=== PATIENT | female | born 1975 | race African-American/Black ===

== ENCOUNTER → 2016-12-10 | Emergency (ER) | payer OTHER ==
[2016-12-11 00:03] VITALS: BP 164/80; PULSE 72; TEMP 98.6; BMI 31.4
--- NOTE | 2016-12-11 01:24 | PDOC ---
History of Present Illness - General History Source: Patient Exam Limitations: No Limitations - History of Present Illness Initial Comments: 12/11/16 01:49 The patient is a 41-year-old female, with no significant past medical history, who presents to the ED with rectal bleeding that began this morning. The patient states that she had a bowel movement this morning and noted blood and clots in the toilet bowl. She experienced two more episodes of bleeding throughout the day. Pt denies that she is constipated and states that she goes to the bathroom normally. The patient denies having any other symptoms at this time. <Yola Ruelas - Last Filed: 12/11/16 01:49> <Carmina Fernández - Last Filed: 12/11/16 05:50> - General Chief Complaint: Rectal Bleed Stated Complaint: RECTAL BLEEDING Time Seen by Provider: 12/11/16 00:08 Past History <Yola Ruelas - Last Filed: 12/11/16 01:49> - Past Medical History Suicide Attempt (Hx): No - Surgical History Abdominal Surgery: Yes (HERNIA) - Reproductive History (#): 6 Para: 5 - Psycho/Social/Smoking Cessation Hx Suicidal Ideation: No Smoking Status: No Smoking History: Never smoked Have you smoked in the past 12 months: No Number of Cigarettes Smoked Daily: 0 Information on smoking cessation initiated: No Hx Alcohol Use: No Drug/Substance Use Hx: No Hx Substance Use Treatment: No <Carmina Fernández - Last Filed: 12/11/16 05:50> - Past Medical History Allergies/Adverse Reactions: Allergies Allergy/AdvReac Type Severity Reaction Status Date / Time No Known Allergies Allergy Verified 12/11/16 00:01 Home Medications: Ambulatory Orders Pnv95/Ferrous Fumarate/FA [ Tablet] 1 each PO DAILY 04/08/13 Review of Systems - Review of Systems Able to Perform ROS?: Yes Comments:: 12/11/16 01:50 CONSTITUTIONAL: Absent: fever, no chills, no fatigue EYES: Absent: visual changes ENT: Absent: ear pain, no sore throat CARDIOVASCULAR: Absent: chest pain, no palpitations RESPIRATORY: Absent: cough, no SOB GI: Absent: abdominal pain, no nausea, no vomiting, no constipation, no diarrhea GENITOURINARY: Present: rectal bleeding Absent: dysuria, no frequency, no hematuria MUSKULOSKELETAL: Absent: back pain, no arthralgia, no myalgia SKIN: Absent: rash NEURO: Absent: headache <Roxi Ruelasie - Last Filed: 12/11/16 01:49> *Physical Exam - Vital Signs Last Vital Signs Temp Pulse Resp BP Pulse Ox 98.6 F 72 20 164/80 97 12/11/16 00:01 12/11/16 00:01 12/11/16 00:01 12/11/16 00:01 12/11/16 00:01 - Physical Exam Comments: 12/11/16 01:51 GENERAL: Well-appearing, well-nourished. No apparent distress. HEENT: Normocephalic, atraumatic. PERRL, EOM intact. CARDIOVASCULAR: Normal S1, S2. Regular rate and rhythm. PULMONARY: Clear to auscultation bilaterally. ABDOMEN: Soft, non-distended, non-tender. EXTREMITIES: Normal ROM in all four extremities. No gross deformities. SKIN: Warm, dry. No rash NEUROLOGICAL: No focal neurological deficits. Rectal Exam: Large hemorrhoid noted at 6'oclock. <Yola Ruelas - Last Filed: 12/11/16 01:49> - Vital Signs Last Vital Signs Temp Pulse Resp BP Pulse Ox 98.6 F 72 20 164/80 97 12/11/16 00:01 12/11/16 00:01 12/11/16 00:01 12/11/16 00:01 12/11/16 00:01 <Carmina Fernández - Last Filed: 12/11/16 05:50> ED Treatment Course - ADDITIONAL ORDERS Additional order review: Laboratory Results 12/11/16 01:40 Stool Occult Blood Negative <Yola Ruelas - Last Filed: 12/11/16 01:49> - LABORATORY CBC & Chemistry Diagram: 12/11/16 01:46 12/11/16 01:46 <Carmina Fernández - Last Filed: 12/11/16 05:50> Medical Decision Making - Medical Decision Making 12/11/16 05:49 Pt comes with rectal bleed x 3 today. Here agatha guaiac is normal. Labs normal. Exam normal. No active bleeding. SHe has only a large hemorrhoid at 6 o' clock. SHe will be sent home with GI followup. <Carmina Fernández - Last Filed: 12/11/16 05:50> *DC/Admit/Observation/Transfer - Attestations Scribe Attestion: 12/11/16 01:52 Documentation prepared by Yola Ruelas, acting as medical dosimetrist for Carmina Fernández MD. <Yola Ruelas - Last Filed: 12/11/16 01:49> - Discharge Dispostion Admit: No <Carmina Fernández - Last Filed: 12/11/16 05:50> Diagnosis at time of Disposition: Rectal bleed, Hemorrhoid - Discharge Dispostion Disposition: HOME Condition at time of disposition: Stable - Referrals Referrals: Jaret Zamarripa MD [Staff Physician] - - Patient Instructions Printed Discharge Instructions: DI for Hemorrhoids, DI for Rectal Bleeding
[2016-12-11 01:55] LABS: BASOPHIL 0.5 % (0-2.0); EOSINOPHIL 1.8 % (0-4.5); MCH 28.5 pg (25.7-33.7); MEAN CELL VOLUME 86.5 fl (80-96); MEAN PLT VOLUME 9.1 fl (7.5-11.1); NEUTROPHILS 52.6 % (42.8-82.8); PLATELET COUNT 216 K/MM3 (134-434); RDW 13.9 % (11.6-15.6); WHITE BLOOD COUNT 8.4 K/mm3 (4.0-10.0)
[2016-12-11 02:31] LABS: ALBUMIN 3.5 g/dl (3.4-5.0); ALK PHOS 95 U/L (45-117); ANION GAP 10 (8-16); BILIRUBIN,TOTAL 0.7 mg/dL (0.2-1.0); CALCIUM 8.5 mg/dL (8.5-10.1); CO2 25 mmol/L (21-32); CREATININE 0.8 mg/dL (0.55-1.02); GLUCOSE,RANDOM 90 mg/dL (74-106); SGOT/AST 26 U/L (15-37); SGPT/ALT 28 U/L (12-78); TOT PROT 6.9 g/dl (6.4-8.2)
== END | disposition home or self-care (01) ==
LOC: JER 23:31
DX: K62.5 Hemorrhage of anus and rectum (principal); K64.9 Unspecified hemorrhoids
CPT/HCPCS: 36415; 80053; 82272; 85025; 99282-25

== ENCOUNTER 2018-01-16 12:14 | Emergency (ER) | payer OTHER ==
[2018-01-16 12:25] VITALS: BMI 25.0
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
[2018-01-16 13:32] LABS: HCG,QUALITATIVE URINE NEGATIVE
[2018-01-16] MEDS ORDERED: ACETAMINOPHEN 500 MG TABLET (FP) PO ONE (13:38)
[2018-01-16] MEDS ORDERED: SODIUM CHLORIDE 1,000 ML IV STA (13:50)
[2018-01-16] MEDS ORDERED: morphine CARPU-JECT 4 MG/1 ML DISP.SYRIN IVPUSH ONE (13:50)
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
[2018-01-16 14:06] LABS: URINE APPEARANCE CLEAR; URINE BILIRUBIN NEGATIVE (<2.0 mg/dL); URINE BLOOD 2+ (NEGATIVE); URINE COLOR LTYELLOW; URINE GLUCOSE (UA) NEGATIVE (NEGATIVE); URINE KETONE NEGATIVE (NEGATIVE); URINE LEUK ESTERASE NEGATIVE (NEGATIVE); URINE NITRITE NEGATIVE (NEGATIVE); URINE UROBILINOGEN NEGATIVE mg/dL (0.2-1.0)
[2018-01-16] MEDS ORDERED: morphine SULFATE 4 MG/ML VIAL ONE (14:12)
[2018-01-16 14:32] LABS: BASO % 0.6 % (0-2.0); EOS % 1.4 % (0-4.5); HEMATOCRIT 38.4 % (32.4-45.2); HEMOGLOBIN 12.4 GM/dL (10.7-15.3); MCH 25.7 pg (25.7-33.7); MCHC 32.4 g/dl (32.0-36.0); MEAN CELL VOLUME 79.3 fl (80-96); MEAN PLT VOLUME 8.7 fl (7.5-11.1); MONO % 9.2 % (3.8-10.2); NEUT % 65.8 % (42.8-82.8); PLATELET COUNT 259 K/MM3 (134-434); RBC 4.85 M/mm3 (3.60-5.2); RDW 16.4 % (11.6-15.6); WHITE BLOOD COUNT 9.8 K/mm3 (4.0-10.0)
[2018-01-16 14:38] LABS: URINE PROTEIN 2+ (NEGATIVE)
[2018-01-16 14:40] LABS: EPI CELLS RARE /HPF (FEW); URINE MUCUS RARE
[2018-01-16 14:57] LABS: INR 1.06 (0.82-1.09)
[2018-01-16 15:00] LABS: ACTIVATED PTT 33.7 SECONDS (26.9-34.4)
[2018-01-16 15:02] LABS: ALBUMIN 3.6 g/dl (3.4-5.0); ALK PHOS 90 U/L (45-117); ANION GAP 4 (8-16); BILIRUBIN,TOTAL 0.4 mg/dL (0.2-1.0); BLOOD UREA NITROGEN 12 mg/dL (7-18); CALCIUM 8.4 mg/dL (8.5-10.1); CHLORIDE 107 mmol/L (98-107); CO2 29 mmol/L (21-32); CREATININE 0.7 mg/dL (0.55-1.02); GLUCOSE,RANDOM 77 mg/dL (74-106); SGOT/AST 16 U/L (15-37); SGPT/ALT 20 U/L (12-78); SODIUM 140 mmol/L (136-145); TOT PROT 7.2 g/dl (6.4-8.2)
[2018-01-16 17:11] VITALS: BP 117/68; PULSE 72; TEMP 97.8
== END 2018-01-16 17:10 | disposition home or self-care (01) ==
LOC: JER 12:14
PROC: 3E033NZ Introduction of Analgesics, Hypnotics, Sedatives into Peripheral Vein, Percutaneous Approach (ICD-10-PCS; principal; 2018-01-16)
DX: S39.81XA Other specified injuries of abdomen, initial encounter (principal); Y04.2XXA Assault by strike against or bumped into by another person, initial encounter; Y93.89 Activity, other specified; Y92.118 Other place in children's home and orphanage as the place of occurrence of the external cause; Y99.0 Civilian activity done for income or pay
CPT/HCPCS: 36415; 74177-TC; 80053; 81003; 81015; 83690; 84703; 85025; 85610; 85730; 99283-25; J7030

== ENCOUNTER 2018-06-15 23:20 | Inpatient (IN) | payer OTHER ==
[2018-06-15 23:25] VITALS: BMI 25.0
--- NOTE | 2018-06-15 23:28 | PDOC ---
History of Present Illness - General Chief Complaint: Pain Stated Complaint: L BREAST PAIN Time Seen by Provider: 06/15/18 23:27 History Source: Patient Exam Limitations: No Limitations - History of Present Illness Initial Comments: Pt is a 42 yo F, with no significant PMH, who is presenting with b/l breast pain. Pt had multiple plastic surgeries in January 2018 in the [place], including abdominoplasty, liposuction, and b/l breast implant replacement ( silicone for saline, prior saline implants in for 15 years). Pt states starting 1 week ago, she noticed swelling, tenderness, and a "bubbling" feeling over the superior aspect (~11 o'clock) of the R breast, which improved with warm compress. Starting 2 days ago, the pt noticed redness, warmth, pain, and swelling over the inferior R breast (~5-7 o'clock), which has not improved with compress and is worsening. There has not been and nipple discharge. Pt denies any fevers/chills, headache, vision changes, chest pain, SOB, nausea/vomiting, abdominal pain, diarrhea/constipation, or leg swelling. Pt was seen at [facility] in January, shortly after her surgery for abdominal fluid. Pt had been seeing plastic surgeon Dr. Zambrano in [place] for removal of the abdominal fluid, but he has not seen her breast swelling. Pt denies alcohol, cigarette and other drug use. Pt denies recent travel and other sick contacts. 06/16/18 01:56 Past History - Travel Traveled outside of the country in the last 30 days: No Close contact w/someone who was outside of country & ill: No - Past Medical History Allergies/Adverse Reactions: Allergies Allergy/AdvReac Type Severity Reaction Status Date / Time No Known Allergies Allergy Verified 06/15/18 23:24 Home Medications: Ambulatory Orders NK [No Known Home Medication] 06/16/18 Anemia: No Asthma: No Cancer: No Cardiac Disorders: No CVA: No COPD: No DVT: No Dementia: No Diabetes: No Dialysis: No GI Disorders: No Disorders: No HTN: No Hypercholesterolemia: No Kidney Stones: No Liver Disease: No Psychiatric Problems: No Seizures: No Thyroid Disease: No Lung CA: No - Surgical History Abdominal Surgery: Yes (HERNIA, abdominoplasty, liposuction) Other Surgical History: b/l breast implant replacement (saline to silicone), had prior implants x15 years. 06/16/18 01:57 - Reproductive History (#): 6 Para: 5 - Immunization History Immunization Up to Date: Yes - Suicide/Smoking/Psychosocial Hx Smoking Status: No Smoking History: Never smoked Have you smoked in the past 12 months: No Number of Cigarettes Smoked Daily: 0 Hx Alcohol Use: No Drug/Substance Use Hx: No Hx Substance Use Treatment: No Review of Systems - Review of Systems Able to Perform ROS?: Yes Is the patient limited Colombian proficient: No Constitutional: Yes: Weight Stable. No: Chills, Diaphoresis, Fever, Loss of Appetite, Weakness HEENTM: No: Recent change in vision, Nose Congestion, Hearing Loss, Throat Swelling, Difficulty Swallowing Respiratory: No: Cough, Orthopnea, Shortness of Breath, Wheezing, Hemoptysis Cardiac (ROS): No: Chest Pain, Edema, Irregular Heart Rate, Lightheadedness, Palpitations, Syncope, Chest Tightness ABD/GI: No: Abdominal Distended, Constipated, Diarrhea, Nausea, Poor Appetite, Poor Fluid Intake, Vomiting, Abdominal cramping : No: Burning, Dysuria, Frequency, Hematuria, Pain, Urgency Musculoskeletal: No: Back Pain, Joint Pain, Muscle Pain Integumentary: Yes: Change in Color, Erythema, Other (pain and swelling of b/l breasts. erythema and warmth of inferior L breast, as stated in HPI.). No: Lesions, Rash Neurological: No: Headache, Seizure, Weakness, Unsteady Gait, Ataxia, Dizziness Psychiatric: No: Sleep Pattern Change, Change in Appetite Endocrine: No: Increased Urine, Change in Weight Hematologic/Lymphatic: No: Anemia, Blood Clots, Easy Bleeding, Easy Bruising All Other Systems: Reviewed and Negative *Physical Exam - Vital Signs Last Vital Signs Temp Pulse Resp BP Pulse Ox 98.6 F 73 18 139/79 100 06/15/18 23:20 06/15/18 23:20 06/15/18 23:20 06/15/18 23:20 06/15/18 23:20 - Physical Exam General Appearance: Yes: Nourished, Appropriately Dressed, Apparent Distress ( Vitals stable, pt is tearful and appears uncomfortable. Obvious discomfort during breast exam.) HEENT: positive: EOMI, RAYMUNDO, Normal ENT Inspection, Normal Voice, Symmetrical, Pharynx Normal, Hearing Grossly Normal. negative: Scleral Icterus (R), Scleral Icterus (L), Pharyngeal Erythema, Tonsillar Exudate, Tonsillar Erythema Neck: positive: Trachea midline, Normal Thyroid, Supple. negative: Tender, Rigid, Lymphadenopathy (R), Lymphadenopathy (L) Respiratory/Chest: positive: Lungs Clear, Normal Breath Sounds, Other (no chest wall tenderness. tenderness to palpation of b/l breasts. skin dimpling ). negative: Chest Tender, Respiratory Distress, Accessory Muscle Use, Crackles, Wheezing Cardiovascular: positive: Regular Rhythm, Regular Rate, S1, S2. negative: Edema , JVD, Murmur Vascular Pulses: Carotid (R): 4+, Carotid (L): 4+ Gastrointestinal/Abdominal: positive: Normal Bowel Sounds, Flat, Soft. negative : Tender, Organomegaly, Pulsatile Mass, Distended, Guarding, Rebound Rectal Exam: positive: deferred Lymphatic: negative: Adenopathy, Tenderness Musculoskeletal: positive: Normal Inspection. negative: CVA Tenderness Extremity: positive: Normal Capillary Refill, Normal Inspection, Normal Range of Motion. negative: Tender, Pedal Edema Integumentary: positive: Dry, Warm, Erythema. negative: Normal Color (breast erythema, warmth, and dimpling of L breast, 6'oclock. no nipple drainage.), Jaundice, Clammy, Diaphoresis, Rash, Ecchymosis Neurologic: positive: diversional therapist II-XII NML intact, Fully Oriented, Alert, Normal Mood/ Affect, Normal Response, Motor Strength 5/5. negative: Sensory Deficit ED Treatment Course - LABORATORY CBC & Chemistry Diagram: 06/16/18 00:17 06/16/18 00:17 Medical Decision Making - Medical Decision Making Pt was seen at bedside, also will be seen by attending Dr. Lin. Pt presenting with b/l breast pain. Pt had multiple plastic surgeries in January 2018 in the [place], including abdominoplasty, liposuction, and b/l breast implant replacement (silicone for saline). Pt states starting 1 week ago , she noticed swelling, tenderness, and a "bubbling" feeling over the superior aspect (~11 o'clock) of the R breast, which improved with warm compress. Starting 2 days ago, the pt noticed redness, warmth, pain, and swelling over the inferior R breast (~5-7 o'clock), which has not improved with compress and is worsening. There has not been and nipple discharge. Pt denies any fevers/ chills, headache, vision changes, chest pain, SOB, nausea/vomiting, abdominal pain, diarrhea/constipation, or leg swelling. Pt was seen in January, shortly after her surgery for abdominal fluid. Pt had been seeing plastic surgeon Dr. Zambrano in [place] for removal of the abdominal fluid , but he has not seen her breast swelling. PE showed tenderness and swelling of b/l breasts, with erythema, warmth and skin dimpling of the inferior L breast. No nipple discharge at this time. Pt afebrile and vitals stable. Considering localized cellulitis vs abscess vs infected implant. Ordered work-up including CBC, CMP, coags, type & screen, UA, urine beta-hcg and portable chest x-ray. Provided 1L NS and 2 mg IV morphine, for improvement of pain/symptom control. Will continue to reassess pt and monitor for symptomatic improvement. 06/15/18 23:[address] Spence (on-call for Plastics). Started 1g vanc and 3.375 g zosyn 06/15/18 23:58 Chemistry Specialist left message for Dr. Spence. 06/15/18 23:59 ECG showed NSR, normal intervals. CBC WNL and CMP WNL. UA no sign of infection. Pending lactic acid. Urine and blood cultures pending. Urine beta-hcg negative. Pt sent for chest x-ray. Pt states pain currently controlled and she is resting comfortably. Pending official ultrasound read. Read by Dr. Lin in ER, who stated likely abscess. Dr. Spence no call-back after multiple attempts. Paged hospitalist for admission. Awaiting call. 06/16/18 01:31 Spoke with hospitalist team in the ER, who will come for sign-out shortly. Pending lactic acid and official US read. 06/16/18 01:54 Signed out to hospitalist team for admission, Dr. Thorpe. US read showed 4.7 x 3 x 2 abscess vs phlegmon in L breast at ~6'oclock. Lactic acid 0.9 06/16/18 02:13 *DC/Admit/Observation/Transfer Diagnosis at time of Disposition: Cellulitis of breast, Left breast abscess Infection of breast implant Qualifiers: Encounter type: initial encounter Qualified Code(s): T85.79XA - Infection and inflammatory reaction due to other internal prosthetic devices, implants and grafts, initial encounter - Discharge Dispostion Condition at time of disposition: Stable Decision to Admit order: Yes - Referrals Referrals: Estephania Acosta [Primary Care Provider] - - Patient Instructions - Post Discharge Activity
[2018-06-15] MEDS ORDERED: morphine CARPU-JECT 4 MG/1 ML DISP.SYRIN IVPUSH ONE (23:55)
[2018-06-16] MEDS ORDERED: VANCOMYCIN 1,000 MG in DEXTROSE 5%-WATER - 250 ML IVPB ONE (00:03)
[2018-06-16] MEDS ORDERED: PIPERACILLIN/TAZOB 3.375 GM 3.375 GM in DEXTROSE 5%-WATER - 50 ML IVPB ONE (00:04)
[2018-06-16] MEDS ORDERED: SODIUM CHLORIDE 1,000 ML IV STA (00:05)
[2018-06-16] MEDS ORDERED: MORPHINE SULFATE 2 MG/ML VIAL ONE (00:23)
--- NOTE | 2018-06-16 00:23 | PDOC ---
Attending Attestation - HPI HPI: 06/16/18 00:31 The patient is a 42 year old female with a significant past medical history of abdominoplasty, liposuction, and bilateral breast implant (01/2018 in the [place]) who presents to the ED with complaints of breast pain for a week. Patient states she developed pain to her right upper breast a week ago and states her right breast feels bubbly. She states her symptoms progressively worsened and she developed pain to her left breast 2 days ago. Patient states her left breast is currently swollen and red and is currently worse than her right breast. Denies fever or chills. Denies nipple discharge. Denies any other symptoms. - Physicial Exam PE: 06/16/18 00:31 Constitutional: + tearful, upset. Awake, alert, oriented. Head: Normocephalic. Atraumatic Eyes: PERRL. EOMI. Conjunctivae are not pale. ENT: Mucous membranes are moist and intact. Posterior pharynx without exudates or erythema. Uvula midline. Neck: Supple. Full ROM. No lymphadenopathy. Cardiovascular: Regular rate. Regular rhythm. S1, S2 regular. Distal pulses are 2+ and symmetric. Pulmonary/Chest: No evidence of respiratory distress. Clear to auscultation bilaterally No wheezing, rales or rhonchi. Abdominal: Soft and non-distended. There is no tenderness. No rebound, guarding or rigidity. No organomegaly. No palpable masses. Good bowel sounds. Back: No CVA tenderness. Musculoskeletal: No edema. No cyanosis. No clubbing. Full range of motion in all extremities. Nocalf tenderness. Radial/pedal pulses are intact and 2+ bilaterally Breast: + Left breast is cellulitic from mid nipple line down, peau de orange skin color along her healed incision scar from breast augmentation. Right breast : no redness, no swelling, no puckering, implant in intact. No nipple discharge. Skin: Skin is warm and dry. No petechiae. No purpura. Neurological: Alert and oriented to person, place, and time. Cranial nerves II -XII are grossly intact. Normal speech. Strength is grossly symmetric. No sensory deficits. Psychiatric: Good eye contact. Normal interaction, affect and behavior. <Christie Flores - Last Filed: 11/02/18 00:31> - Resident Resident Name: Debby Vera - ED Attending Attestation I have performed the following: I have examined & evaluated the patient, The case was reviewed & discussed with the resident, I agree w/resident's findings & plan, Exceptions are as noted - Medical Decision Making 06/16/18 00:11 I, Dr. Chichi Lin, DO, attest that this document has been prepared under my direction and personally reviewed by me in its entirety. I further attest, that it accurately reflects all work, treatment, procedures and medical decision -making performed by me. 06/16/18 00:11 a/p: 42yo female with breast augmentation performed in DR francesco Ulloa breast cellulitis and concern for infected implant -will send labs, cultures, breast ultrasound for poss abscess -call placed to Dr. Spence from Plastic surgery -will start broad spectrum abx -will need admission -will obtain ekg, cxr 06/16/18 00:[address] Spence 06/16/18 01:17 pt will be admitted for IV abx will need surgical eval <Chichi Lin - Last Filed: 06/16/18 01:17> Attestations - Attestations 06/16/18 00:31 Documentation prepared by Christie Flores, acting as director medical safety for Chichi Lin DO <Christie Flores - Last Filed: 06/16/18 00:31>
[2018-06-16 00:33] LABS: BASO % 0.4 % (0-2.0); EOS % 1.7 % (0-4.5); HEMATOCRIT 35.6 % (32.4-45.2); HEMOGLOBIN 11.1 GM/dL (10.7-15.3); LYMPH % 29.6 % (8-40); MCH 22.9 pg (25.7-33.7); MCHC 31.2 g/dl (32.0-36.0); MEAN CELL VOLUME 73.6 fl (80-96); MEAN PLT VOLUME 8.3 fl (7.5-11.1); MONO % 8.3 % (3.8-10.2); PLATELET COUNT 384 K/MM3 (134-434); RBC 4.83 M/mm3 (3.60-5.2); RDW 17.7 % (11.6-15.6); WHITE BLOOD COUNT 8.8 K/mm3 (4.0-10.0)
[2018-06-16] MEDS ORDERED: VANCOMYCIN 1 GRAM (PRE-DOCKED) 1,000 MG/250 ML BAG IVPB ONE (00:54)
[2018-06-16] MEDS ORDERED: PIPERACILLIN/TAZOB 3.375 GM 3.375 GM/50 ML BAG IVPB ONE (00:54)
[2018-06-16 01:05] LABS: INR 1.11 (0.83-1.09); PROTHROMBIN TIME (PATIENT) 13.1 SEC (9.7-13.0)
[2018-06-16 01:15] LABS: ALBUMIN 3.2 g/dl (3.4-5.0); ALK PHOS 122 U/L (45-117); ANION GAP 8 MMOL/L (8-16); BILIRUBIN,TOTAL 0.3 mg/dL (0.2-1); BLOOD UREA NITROGEN 14 mg/dL (7-18); CALCIUM 8.7 mg/dL (8.5-10.1); CHLORIDE 104 mmol/L (98-107); CO2 27 mmol/L (21-32); CREATININE 0.8 mg/dL (0.55-1.3); GLUCOSE,RANDOM 90 mg/dL (74-106); POTASSIUM 3.9 mmol/L (3.5-5.1); SGOT/AST 19 U/L (15-37); SGPT/ALT 16 U/L (13-61); SODIUM 139 mmol/L (136-145); TOT PROT 7.7 g/dl (6.4-8.2)
[2018-06-16 01:19] LABS: URINE APPEARANCE CLEAR; URINE BILIRUBIN NEGATIVE (<2.0 mg/dL); URINE COLOR LTYELLOW; URINE GLUCOSE (UA) NEGATIVE (NEGATIVE); URINE KETONE NEGATIVE (NEGATIVE); URINE LEUK ESTERASE NEGATIVE (NEGATIVE); URINE NITRITE NEGATIVE (NEGATIVE); URINE PROTEIN 2+ (NEGATIVE); URINE UROBILINOGEN NEGATIVE mg/dL (0.2-1.0)
[2018-06-16 01:30] LABS: EPI CELLS RARE /HPF (FEW); URINE BACTERIA RARE /hpf (NONE SEEN); URINE HYALINE CAST 1 /lpf; URINE MUCUS RARE
--- NOTE | 2018-06-16 04:00 | HP ---
CHIEF COMPLAINT: Breast Pain, Swelling and Redness PCP: HISTORY OF PRESENT ILLNESS: This is a 42 y/o young woman with no PMHx. PSHx of Silicone Breast Implants, Removal of Saline Breast Implants, Abdominalplasty, and Hernia Repair all done, January 2018), Saline Breast Implants (15 yrs ago), Hernia Repair (2003), Who presents to the ED with left breast pain, erythema, swelling x 1 day. Patient reports having erythema to her right breast the day before now resolved. Patient denies discharge. Patient denies fever, chills, cough, dizziness, SOB, CP, AP, N/V/D, constipation, dysuria. Patient denies fall or trauma ER course was notable for: (1) Breast US- 4.7 x3.1 x2.1 complex focus with vascularity at 6'oclock region with visible erythema representing phlegmon or abscess (2) (3) Recent Travel: 5 months ago PAST MEDICAL HISTORY: None PAST SURGICAL HISTORY: See HPI Social History: Smoking: Never Alcohol: Socially Drugs: None Lives with her 6 children Family History: Non-contributory Allergies No Known Allergies Allergy (Verified 06/15/18 23:24) HOME MEDICATIONS: Home Medications Medication Instructions Recorded NK [No Known Home Medication] 06/16/18 REVIEW OF SYSTEMS CONSTITUTIONAL: Absent: fever, chills, diaphoresis, generalized weakness, malaise, loss of appetite, weight change HEENT: Absent: rhinorrhea, nasal congestion, throat pain, throat swelling, difficulty swallowing, mouth swelling, ear pain, eye pain, visual changes CARDIOVASCULAR: Absent: chest pain, syncope, palpitations, irregular heart rate, lightheadedness , peripheral edema RESPIRATORY: Absent: cough, shortness of breath, dyspnea with exertion, orthopnea, wheezing, stridor, hemoptysis GASTROINTESTINAL: Absent: abdominal pain, abdominal distension, nausea, vomiting, diarrhea, constipation, melena, hematochezia GENITOURINARY: Absent: dysuria, frequency, urgency, hesitancy, hematuria, flank pain, genital pain MUSCULOSKELETAL: Absent: myalgia, arthralgia, joint swelling, back pain, neck pain BREAST: erythema, swelling, hardness, pain SKIN: erythema to left breast 8-5'oclock region Absent: rash, itching, pallor HEMATOLOGIC/IMMUNOLOGIC: Absent: easy bleeding, easy bruising, lymphadenopathy, frequent infections ENDOCRINE: Absent: unexplained weight gain, unexplained weight loss, heat intolerance, cold intolerance NEUROLOGIC: Absent: headache, focal weakness or paresthesias, dizziness, unsteady gait, seizure, mental status changes, bladder or bowel incontinence PSYCHIATRIC: Absent: anxiety, depression, suicidal or homicidal ideation, hallucinations. PHYSICAL EXAMINATION Vital Signs - 24 hr 06/15/18 06/16/18 23:20 03:32 Temperature 98.6 F 98.7 F Pulse Rate 73 Pulse Rate [ 69 Right Radial] Respiratory 18 19 Rate Blood Pressure 139/79 Blood Pressure 129/75 [Left Arm] O2 Sat by Pulse 100 99 Oximetry (%) GENERAL: Awake, alert, and fully oriented, in no acute distress. HEAD: Normal with no signs of trauma. EYES: Pupils equal, round and reactive to light, extraocular movements intact, sclera anicteric, conjunctiva clear. No lid lag. EARS, NOSE, THROAT: Ears normal, nares patent, oropharynx clear without exudates. Moist mucous membranes. NECK: Normal range of motion, supple without lymphadenopathy, JVD, or masses. LUNGS: Breath sounds equal, clear to auscultation bilaterally. No wheezes, and no crackles. No accessory muscle use. HEART: Regular rate and rhythm, normal S1 and S2 without murmur, rub or gallop. ABDOMEN: Striae, surgical scar to mid pubis, hypoactive bowel sounds. Soft, nontender, not distended, no guarding, no rebound, no masses. No hepatomegaly or splenomegaly. MUSCULOSKELETAL: Normal range of motion at all joints. No bony deformities or tenderness. No CVA tenderness. UPPER EXTREMITIES: 2+ pulses, warm, well-perfused. No cyanosis. No clubbing. No peripheral edema. LOWER EXTREMITIES: 2+ pulses, warm, well-perfused. No calf tenderness. No peripheral edema. NEUROLOGICAL: Cranial nerves II-XII intact. Normal speech. Normal gait. PSYCHIATRIC: Cooperative. Good eye contact. Appropriate mood and affect. SKIN: Erythema, Hardness to L-Breast, Tattoos. Warm, dry, normal turgor, no rashes or lesions noted, normal capillary refill. Laboratory Results - last 24 hr 06/16/18 06/16/18 06/16/18 00:17 00:17 00:17 WBC 8.8 RBC 4.83 Hgb 11.1 Hct 35.6 D MCV 73.6 L MCH 22.9 L MCHC 31.2 L RDW 17.7 H Plt Count 384 MPV 8.3 D Absolute Neuts (auto) 5.3 Neutrophils % 60.0 Lymphocytes % 29.6 Monocytes % 8.3 Eosinophils % 1.7 Basophils % 0.4 Nucleated RBC % 0 PT with INR INR PTT (Actin FS) 26.5 Sodium 139 Potassium 3.9 Chloride 104 Carbon Dioxide 27 Anion Gap 8 BUN 14 Creatinine 0.8 Creat Clearance w eGFR > 60 Random Glucose 90 Lactic Acid Calcium 8.7 Total Bilirubin 0.3 AST 19 ALT 16 Alkaline Phosphatase 122 H Total Protein 7.7 Albumin 3.2 L Beta HCG, Quant < 1.0 Urine Color Urine Appearance Urine pH Ur Specific [place] Urine Protein Urine Glucose (UA) Urine Ketones Urine Blood Urine Nitrite Urine Bilirubin Urine Urobilinogen Ur Leukocyte Esterase Urine WBC (Auto) Urine RBC (Auto) Ur Epithelial Cells Urine Bacteria Hyaline Casts Urine Mucus Urine HCG, Qual Blood Type Antibody Screen 06/16/18 06/16/18 06/16/18 00:17 00:17 00:17 WBC RBC Hgb Hct MCV MCH MCHC RDW Plt Count MPV Absolute Neuts (auto) Neutrophils % Lymphocytes % Monocytes % Eosinophils % Basophils % Nucleated RBC % PT with INR 13.10 H INR 1.11 H PTT (Actin FS) Sodium Potassium Chloride Carbon Dioxide Anion Gap BUN Creatinine Creat Clearance w eGFR Random Glucose Lactic Acid 0.9 Calcium Total Bilirubin AST ALT Alkaline Phosphatase Total Protein Albumin Beta HCG, Quant Urine Color Urine Appearance Urine pH Ur Specific [place] Urine Protein Urine Glucose (UA) Urine Ketones Urine Blood Urine Nitrite Urine Bilirubin Urine Urobilinogen Ur Leukocyte Esterase Urine WBC (Auto) Urine RBC (Auto) Ur Epithelial Cells Urine Bacteria Hyaline Casts Urine Mucus Urine HCG, Qual Blood Type O POSITIVE Antibody Screen Negative 06/16/18 06/16/18 00:54 00:54 WBC RBC Hgb Hct MCV MCH MCHC RDW Plt Count MPV Absolute Neuts (auto) Neutrophils % Lymphocytes % Monocytes % Eosinophils % Basophils % Nucleated RBC % PT with INR INR PTT (Actin FS) Sodium Potassium Chloride Carbon Dioxide Anion Gap BUN Creatinine Creat Clearance w eGFR Random Glucose Lactic Acid Calcium Total Bilirubin AST ALT Alkaline Phosphatase Total Protein Albumin Beta HCG, Quant Urine Color Ltyellow Urine Appearance Clear Urine pH 5.0 Ur Specific [place] 1.017 Urine Protein 2+ H Urine Glucose (UA) Negative Urine Ketones Negative Urine Blood 3+ H Urine Nitrite Negative Urine Bilirubin Negative Urine Urobilinogen Negative Ur Leukocyte Esterase Negative Urine WBC (Auto) 2 Urine RBC (Auto) 9 Ur Epithelial Cells Rare Urine Bacteria Rare Hyaline Casts 1 Urine Mucus Rare Urine HCG, Qual Negative Blood Type Antibody Screen ASSESSMENT/PLAN: 42 y/o woman Admitted for Left Breast Abscess, Cellulitis secondary to Breast Implants for further evaluation of their emergent condition. Plan: 1. ID Abscess L- Breast Cellulitis of L- Breast Likely secondary to Silicone Breast Implants ?leakage Blood Cultures-pending Vancomycin and Zosyn started in ED will continue Appreciate ID consult No leukocytosis, no neutrophilia, LA nl Repeat CBC, BMP in am Monitor vitals 2. Derm Breast Abscess Breast Cellulitis See above Appreciate Surgical Consult Will keep NPO Continue IVF Warm compress Morphine Sulfate prn FEN D51/2NS@83ml/hr Replete lytes prn NPO DVT ppx OOB SCDs Heparin SQ Code Status: Full Code Dispo: Requires Inpatient Care Problem List - Problem (1) Left breast abscess Code(s): N61.1 - ABSCESS OF THE BREAST AND NIPPLE (2) Infection of breast implant Code(s): T85.79XA - INFECT/INFLM REACTION DUE TO OTH INT PROSTH DEV/GRFT, INIT Qualifiers: Encounter type: initial encounter Qualified Code(s): T85.79XA - Infection and inflammatory reaction due to other internal prosthetic devices, implants and grafts, initial encounter Visit type - Emergency Visit Emergency Visit: Yes ED Registration Date: 06/15/18 Care time: The patient presented to the Emergency Department on the above date and was hospitalized for further evaluation of their emergent condition. - New Patient This patient is new to me today: Yes Date on this admission: 06/16/18 - Critical Care Critical Care patient: No
[2018-06-16] MEDS ORDERED: ONDANSETRON 4 MG/2 ML VIAL IVPUSH PRN (04:46)
[2018-06-16] MEDS: DEXTROSE 5%-0.45% SALINE 1,000 ML IV SCH (05:15)
[2018-06-16] MEDS: MORPHINE SULFATE 2 MG/ML VIAL IVPUSH PRN ×2 (05:15→12:02)
[2018-06-16 07:18] LABS: BASO % 0.4 % (0-2.0); EOS % 1.9 % (0-4.5); HEMATOCRIT 34.1 % (32.4-45.2); HEMOGLOBIN 10.6 GM/dL (10.7-15.3); LYMPH % 26.8 % (8-40); MCH 22.8 pg (25.7-33.7); MEAN CELL VOLUME 73.6 fl (80-96); MONO % 10.5 % (3.8-10.2); NEUT % 60.4 % (42.8-82.8); PLATELET COUNT 332 K/MM3 (134-434); RBC 4.64 M/mm3 (3.60-5.2); RDW 17.6 % (11.6-15.6); WHITE BLOOD COUNT 7.9 K/mm3 (4.0-10.0)
--- NOTE | 2018-06-16 07:29 | PN ---
Progress Note, Physician Chief Complaint: Breast Pain History of Present Illness: 42 y/o young woman healthy no H/O HTN, DM S/P Silicone Breast Implant and removal of Saline Breast Implants, Abdominalplasty, and Hernia Repair all done, January 2018), Hernia Repair (2003), Who presents to the ED with left breast pain, erythema, swelling x 1 day. Patient reports having erythema to her right breast the day before now resolved. Patient denies discharge. Patient denies fever, chills, cough, dizziness, SOB, CP, AP, N/V/D, constipation, dysuria. Patient denies fall or trauma - Current Medication List Current Medications: Active Medications Active Medications Acetaminophen (Tylenol -) 650 mg PO Q6H PRN PRN Reason: PAIN OR FEVER Docusate Sodium (Colace -) 100 mg PO DAILY [facility] Heparin Sodium (Porcine) (Heparin -) 5,000 unit SQ BID [facility] Last Admin: 06/16/18 09:46 Dose: 5,000 unit Dextrose/Sodium Chloride (D5-1/2ns -) 1,000 mls @ 83 mls/hr IV ASDIR [facility] Last Admin: 06/16/18 05:15 Dose: 83 mls/hr Ondansetron HCl (Zofran Injection) 4 mg IVPUSH Q6H PRN PRN Reason: NAUSEA AND/OR VOMITING Oxycodone HCl (Roxicodone -) 5 mg PO Q6H PRN PRN Reason: PAIN LEVEL 7 - 10 Tramadol HCl (Ultram -) 50 mg PO Q8H PRN PRN Reason: PAIN LEVEL 4 - 6 - Objective Vital Signs: Vital Signs Temperature 98.7 F 06/16/18 03:32 Pulse Rate 69 06/16/18 03:32 Respiratory Rate 19 06/16/18 03:32 Blood Pressure 129/75 06/16/18 03:32 O2 Sat by Pulse Oximetry (%) 99 06/16/18 03:32 Young F not in distress c/o Left breast pain HEENT: Mm moist, no anemia NECK: No JVd No Bruit CHEST: left Breast tenderness and indurated area on 6 o clock scar with local tenderness CTA B/L CVS: S1S2 r no m/g/r ABD: No distention non tender Bs = EXT & BACK: No edema feet, no calf tenderness CLIENT COORDINATOR:AOX3 non focal Labs: CBC, BMP 06/16/18 06:00 06/16/18 06:00 - ....Imaging Ultrasound: Report Reviewed ([id number] Cm abscess on Left Breast at 6 O Clock ) Problem List - Problems (1) Infection of breast implant Assessment/Plan: Present with Left breast pain Ultrasound shows sub cutaneous abscess will F/U Plastic surgery and ID input meantime cont IV abx as recommended by ID. Code(s): T85.79XA - INFECT/INFLM REACTION DUE TO OTH INT PROSTH DEV/GRFT, INIT Qualifiers: Encounter type: initial encounter Qualified Code(s): T85.79XA - Infection and inflammatory reaction due to other internal prosthetic devices, implants and grafts, initial encounter
[2018-06-16 08:06] LABS: ANION GAP 8 MMOL/L (8-16); BLOOD UREA NITROGEN 10 mg/dL (7-18); CALCIUM 8.4 mg/dL (8.5-10.1); CHLORIDE 106 mmol/L (98-107); CO2 25 mmol/L (21-32); CREATININE 0.7 mg/dL (0.55-1.3); GLUCOSE,RANDOM 95 mg/dL (74-106); POTASSIUM 3.6 mmol/L (3.5-5.1); SODIUM 139 mmol/L (136-145)
[2018-06-16] MEDS: HEPARIN NA (PORCINE) 5,000 UNITS/ML 1ML VIAL SQ SCH ×2 (09:46→22:10)
--- NOTE | 2018-06-16 10:45 | EKG ---
Test Reason : Blood Pressure : / mmHG Vent. Rate : 072 BPM Atrial Rate : 072 BPM P-R Int : 144 ms QRS Dur : 090 ms QT Int : 408 ms P-R-T Axes : 055 043 029 degrees QTc Int : 446 ms NORMAL SINUS RHYTHM INCOMPLETE RBBB NO PREVIOUS ECGS AVAILABLE Confirmed by GIANA BORJA MD ([id number]) on 06/16/2018 10:45:24 AM Referred By: Confirmed By:GIANA BORJA MD
--- NOTE | 2018-06-16 11:34 | CON.ID ---
Consult Consult Specialty:: infectious diseases Referred by:: Reason for Consultation:: left breat abscess/infected implant - History of Present Illness Chief Complaint: swelling pain and throbbing of left breast and erythema of left breast History of Present Illness: 42 y/o young woman with no PMHx. PSHx of Silicone Breast Implants, Removal of Saline Breast Implants, Abdominalplasty, and Hernia Repair all done, January 2018) , Saline Breast Implants (15 yrs ago), Hernia Repair (2003),admitted because of swelling erythema of the left breast and pain which has been throbbing according to the patient the pain has been going on for 2 weeks and the swelling and redness and tenderness had increased. denies any fever patient was admitted to the hospital and started on iv abx according to the patient she feels a little better and the redness has improved - History Source History Provided By: Patient Limitations to Obtaining History: No Limitations - Past Medical History ...LMP: 06/09/18 ...: No - Alcohol/Substance Use Hx Alcohol Use: Yes (socially) - Smoking History Smoking history: Never smoked Have you smoked in the past 12 months: No Aproximately how many cigarettes per day: 0 Home Medications - Allergies Allergies/Adverse Reactions: Allergies Allergy/AdvReac Type Severity Reaction Status Date / Time No Known Allergies Allergy Verified 06/15/18 23:24 - Home Medications Home Medications: Ambulatory Orders NK [No Known Home Medication] 06/16/18 Review of Systems - Review of Systems Constitutional: reports: No Symptoms Eyes: reports: No Symptoms HENT: reports: No Symptoms Neck: reports: No Symptoms Cardiovascular: reports: No Symptoms Respiratory: reports: No Symptoms Gastrointestinal: reports: No Symptoms Genitourinary: reports: No Symptoms Breasts: reports: See HPI, Breast Implants Musculoskeletal: reports: No Symptoms Integumentary: reports: Change in Color, Erythema Neurological: reports: No Symptoms Endocrine: reports: No Symptoms Hematology/Lymphatic: reports: No Symptoms Psychiatric: reports: No Symptoms Physical Exam Vital Signs: Vital Signs Temperature 98.1 F 06/16/18 09:57 Pulse Rate 77 06/16/18 09:57 Respiratory Rate 17 06/16/18 09:57 Blood Pressure 138/91 06/16/18 09:57 O2 Sat by Pulse Oximetry (%) 100 06/16/18 09:00 Constitutional: Yes: Well Nourished, Calm, Mild Distress Eyes: Yes: Conjunctiva Clear HENT: Yes: Atraumatic, Normocephalic Neck: Yes: Supple, Trachea Midline Cardiovascular: Yes: Regular Rate and Rhythm Respiratory: Yes: Regular, CTA Bilaterally Gastrointestinal: Yes: Normal Bowel Sounds, Soft Breast(s): Yes: Breast Implants, Other (left breast cellulitis ,tenderness, erythema,) Musculoskeletal: Yes: WNL Extremities: Yes: WNL Neurological: Yes: Alert, Oriented Psychiatric: Yes: Alert, Oriented Labs: CBC, BMP 06/16/18 06:00 06/16/18 06:00 Imaging - Results Chest X-ray: Report Reviewed, Image Reviewed Ultrasound: Report Reviewed, Image Reviewed Assessment/Plan 42 y/o woman Admitted for Left Breast Abscess, Cellulitis secondary to Breast Implants for further evaluation of their emergent condition. Plan: 1. ID Abscess L- Breast Cellulitis of L- Breast Problem List - Problem (1) Left breast abscess Code(s): N61.1 - ABSCESS OF THE BREAST AND NIPPLE (2) Infection of breast implant Code(s): T85.79XA - INFECT/INFLM REACTION DUE TO OTH INT PROSTH DEV/GRFT, INIT Qualifiers: Encounter type: initial encounter Qualified Code(s): T85.79XA - Infection and inflammatory reaction due to other internal prosthetic devices, implants and grafts, initial encounter plan will continue zosyn will need drainage have to figure out if the implant can be saved once operated cx to be send including for mycobacteria both typical and atypical rest as per the team
[2018-06-16] MEDS ORDERED: traMADol HCL 50 MG TABLET PO PRN (12:11)
--- NOTE | 2018-06-16 12:13 | PN ---
Progress Note, Physician Chief Complaint: Surgical site infection Cellulitis - Current Medication List Current Medications: Active Medications Acetaminophen (Tylenol -) 650 mg PO Q6H PRN PRN Reason: PAIN OR FEVER Docusate Sodium (Colace -) 100 mg PO DAILY [facility] Heparin Sodium (Porcine) (Heparin -) 5,000 unit SQ BID [facility] Last Admin: 06/16/18 09:46 Dose: 5,000 unit Dextrose/Sodium Chloride (D5-1/2ns -) 1,000 mls @ 83 mls/hr IV ASDIR [facility] Last Admin: 06/16/18 05:15 Dose: 83 mls/hr Ondansetron HCl (Zofran Injection) 4 mg IVPUSH Q6H PRN PRN Reason: NAUSEA AND/OR VOMITING Oxycodone HCl (Roxicodone -) 5 mg PO Q6H PRN PRN Reason: PAIN LEVEL 7 - 10 Tramadol HCl (Ultram -) 50 mg PO Q8H PRN PRN Reason: PAIN LEVEL 4 - 6 - Objective Vital Signs: Vital Signs Temperature 98.1 F 06/16/18 09:57 Pulse Rate 77 06/16/18 09:57 Respiratory Rate 17 06/16/18 09:57 Blood Pressure 138/91 06/16/18 09:57 O2 Sat by Pulse Oximetry (%) 100 06/16/18 09:00 Labs: CBC, BMP 06/16/18 06:00 06/16/18 06:00 INR, PTT INR 1.11 (0.83-1.09) H 06/16/18 00:17
[2018-06-16] MEDS: ACETAMINOPHEN 325 MG TABLET (FP) PO PRN (17:20)
[2018-06-16] MEDS: oxyCODONE HCL 5 MG TABLET PO PRN (22:13)
[2018-06-17] MEDS: DEXTROSE 5%-0.45% SALINE 1,000 ML IV SCH (04:00)
[2018-06-17] MEDS: oxyCODONE HCL 5 MG TABLET PO PRN ×2 (06:33→21:58)
--- NOTE | 2018-06-17 08:25 | PN ---
Progress Note, Physician Chief Complaint: C/O Left breast pain History of Present Illness: 42 y/o young woman healthy no H/O HTN, DM S/P Silicone Breast Implant and removal of Saline Breast Implants, Abdominalplasty, and Hernia Repair all done, January 2018), Hernia Repair (2003), Who presents to the ED with left breast pain, erythema, swelling x 1 day. Patient reports having erythema to her right breast the day before now resolved. Patient denies discharge. Patient denies fever, chills, cough, dizziness, SOB, CP, AP, N/V/D, constipation, dysuria. Patient denies fall or trauma - Current Medication List Current Medications: Active Medications Active Medications Acetaminophen (Tylenol -) 650 mg PO Q6H PRN PRN Reason: PAIN OR FEVER Last Admin: 06/17/18 12:44 Dose: 650 mg Docusate Sodium (Colace -) 100 mg PO DAILY [facility] Last Admin: 06/17/18 09:14 Dose: 100 mg Heparin Sodium (Porcine) (Heparin -) 5,000 unit SQ BID [facility] Last Admin: 06/17/18 09:14 Dose: 5,000 unit Dextrose/Sodium Chloride (D5-1/2ns -) 1,000 mls @ 83 mls/hr IV ASDIR [facility] Last Admin: 06/17/18 04:00 Dose: Not Given Piperacillin Sod/Tazobactam (Sod 3.375 gm/ Dextrose) 50 mls @ 100 mls/hr IVPB Q6H-IV [facility]; Protocol Ondansetron HCl (Zofran Injection) 4 mg IVPUSH Q6H PRN PRN Reason: NAUSEA AND/OR VOMITING Oxycodone HCl (Roxicodone -) 5 mg PO Q6H PRN PRN Reason: PAIN LEVEL 7 - 10 Last Admin: 06/17/18 06:33 Dose: 5 mg Tramadol HCl (Ultram -) 50 mg PO Q8H PRN PRN Reason: PAIN LEVEL 4 - 6 - Objective Vital Signs: Vital Signs Temperature 97.9 F 06/17/18 06:00 Pulse Rate 66 06/17/18 06:00 Respiratory Rate 18 06/17/18 06:00 Blood Pressure 123/65 06/17/18 06:00 O2 Sat by Pulse Oximetry (%) 98 06/16/18 20:59 Young F not in distress c/o Left breast pain HEENT: Mm moist, no anemia NECK: No JVd No Bruit CHEST: left Breast tenderness and indurated area on 6 o clock scar with local tenderness CTA B/L CVS: S1S2 r no m/g/r ABD: No distention non tender Bs = EXT & BACK: No edema feet, no calf tenderness TOBACCO SORTER:AOX3 non focal Labs: CBC, BMP 06/16/18 06:00 06/16/18 06:00 INR, PTT INR 1.11 (0.83-1.09) H 06/16/18 00:17 Problem List - Problems (1) Infection of breast implant Assessment/Plan: Present with Left breast pain Ultrasound shows sub cutaneous abscess will F/U Plastic surgery appreciated will f/u clinically NSAID for pain control, cold compresses. Code(s): T85.79XA - INFECT/INFLM REACTION DUE TO OTH INT PROSTH DEV/GRFT, INIT Qualifiers: Encounter type: initial encounter Qualified Code(s): T85.79XA - Infection and inflammatory reaction due to other internal prosthetic devices, implants and grafts, initial encounter
[2018-06-17] MEDS ORDERED: PIPERACILLIN/TAZOBACTAM 3.375 GM VIAL IVPB ONE ×3 (08:51→20:06)
[2018-06-17] MEDS ORDERED: DEXTROSE 5%-WATER - 50 ML IVPB ONE ×3 (08:51→20:06)
[2018-06-17] MEDS ORDERED: PIPERACILLIN/TAZOB 3.375 GM 3.375 GM in DEXTROSE 5%-WATER - 50 ML IVPB ONE (09:00)
[2018-06-17] MEDS: DOCUSATE SODIUM 100 MG CAPSULE (FP) PO SCH (09:14)
[2018-06-17] MEDS: HEPARIN NA (PORCINE) 5,000 UNITS/ML 1ML VIAL SQ SCH ×2 (09:14→21:59)
[2018-06-17 09:43] LABS: BASO % 0.4 % (0-2.0); EOS % 1.3 % (0-4.5); HEMATOCRIT 35.6 % (32.4-45.2); HEMOGLOBIN 11.7 GM/dL (10.7-15.3); LYMPH % 22.4 % (8-40); MCH 24.2 pg (25.7-33.7); MCHC 32.8 g/dl (32.0-36.0); MEAN CELL VOLUME 73.7 fl (80-96); MEAN PLT VOLUME 8.3 fl (7.5-11.1); MONO % 6.7 % (3.8-10.2); NEUT % 69.2 % (42.8-82.8); PLATELET COUNT 368 K/MM3 (134-434); RBC 4.83 M/mm3 (3.60-5.2); RDW 17.7 % (11.6-15.6)
--- NOTE | 2018-06-17 09:50 | PN ---
Progress Note, Physician History of Present Illness: patient still continues to have pain breast erythema less swelling still present tenderness still present - Current Medication List Current Medications: Active Medications Acetaminophen (Tylenol -) 650 mg PO Q6H PRN PRN Reason: PAIN OR FEVER Last Admin: 06/16/18 17:20 Dose: 650 mg Docusate Sodium (Colace -) 100 mg PO DAILY [facility] Last Admin: 06/17/18 09:14 Dose: 100 mg Heparin Sodium (Porcine) (Heparin -) 5,000 unit SQ BID [facility] Last Admin: 06/17/18 09:14 Dose: 5,000 unit Dextrose/Sodium Chloride (D5-1/2ns -) 1,000 mls @ 83 mls/hr IV ASDIR [facility] Last Admin: 06/17/18 04:00 Dose: Not Given Ondansetron HCl (Zofran Injection) 4 mg IVPUSH Q6H PRN PRN Reason: NAUSEA AND/OR VOMITING Oxycodone HCl (Roxicodone -) 5 mg PO Q6H PRN PRN Reason: PAIN LEVEL 7 - 10 Last Admin: 06/17/18 06:33 Dose: 5 mg Tramadol HCl (Ultram -) 50 mg PO Q8H PRN PRN Reason: PAIN LEVEL 4 - 6 - Objective Vital Signs: Vital Signs Temperature 97.9 F 06/17/18 06:00 Pulse Rate 66 06/17/18 06:00 Respiratory Rate 18 06/17/18 06:00 Blood Pressure 123/65 06/17/18 06:00 O2 Sat by Pulse Oximetry (%) 98 06/16/18 20:59 Constitutional: Yes: Calm, Mild Distress HENT: Yes: Atraumatic, Normocephalic Cardiovascular: Yes: Regular Rate and Rhythm Respiratory: Yes: Regular, CTA Bilaterally Gastrointestinal: Yes: Normal Bowel Sounds, Soft Breast(s): Yes: Other (left breast swelling eryhtema and tenderness) Musculoskeletal: Yes: WNL Extremities: Yes: WNL Neurological: Yes: Alert, Oriented Psychiatric: Yes: Alert, Oriented Labs: INR, PTT INR 1.11 (0.83-1.09) H 06/16/18 00:17 Assessment/Plan 42 y/o woman Admitted for Left Breast Abscess, Cellulitis secondary to Breast Implants for further evaluation of their emergent condition. Plan: 1. ID Abscess L- Breast Cellulitis of L- Breast Problem List - Problem (1) Left breast abscess Code(s): N61.1 - ABSCESS OF THE BREAST AND NIPPLE (2) Infection of breast implant Code(s): T85.79XA - INFECT/INFLM REACTION DUE TO OTH INT PROSTH DEV/GRFT, INIT Qualifiers: Encounter type: initial encounter Qualified Code(s): T85.79XA - Infection and inflammatory reaction due to other internal prosthetic devices, implants and grafts, initial encounter plan continue abx awaiting for plastics rest continue current mgmt
[2018-06-17 10:03] LABS: ANION GAP 9 MMOL/L (8-16); BLOOD UREA NITROGEN 9 mg/dL (7-18); CALCIUM 8.2 mg/dL (8.5-10.1); CHLORIDE 106 mmol/L (98-107); CO2 24 mmol/L (21-32); CREATININE 0.7 mg/dL (0.55-1.3); GLUCOSE,RANDOM 89 mg/dL (74-106); POTASSIUM 4.2 mmol/L (3.5-5.1); SODIUM 140 mmol/L (136-145)
--- NOTE | 2018-06-17 10:34 | CONSULT ---
Consult Consult Specialty:: Plastic Surgery - Past Medical History ...LMP: 06/09/18 ...: No - Alcohol/Substance Use Hx Alcohol Use: Yes (socially) - Smoking History Smoking history: Never smoked Have you smoked in the past 12 months: No Aproximately how many cigarettes per day: 0 Home Medications - Allergies Allergies/Adverse Reactions: Allergies Allergy/AdvReac Type Severity Reaction Status Date / Time No Known Allergies Allergy Verified 06/15/18 23:24 - Home Medications Home Medications: Ambulatory Orders NK [No Known Home Medication] 06/16/18 Physical Exam Vital Signs: Vital Signs Temperature 97.9 F 06/17/18 06:00 Pulse Rate 66 06/17/18 06:00 Respiratory Rate 18 06/17/18 06:00 Blood Pressure 123/65 06/17/18 06:00 O2 Sat by Pulse Oximetry (%) 98 06/16/18 20:59 Labs: CBC, BMP 06/17/18 08:00 Assessment/Plan 42 year-old woman admitted with infection of left breast. Patient had recent surgery (December 2017) to exchange saline implants for silicone implants plus vertical breast lifts. Also had abdominoplasty at the same time. Surgery performed in [place]. [place] presents with pain Left breast over superior portion of vertical limb of mastopexy with surrounding erythema. Area of concern over scar seems well defined and consistent with seroma with some subcutaneous separation. Patient states this area was always 'soft'. Exam also shows that implants are likely placed over the pectoralis major muscle. Patient is afebrile and has a normal WBC. Discussed with patient the likelihood that wound will need to be opened. Patient and nurses state that erythema, swelling and discomfort have improved significantly over the past two days with antibiotics. Discussed with patient that with an infection, if the implant becomes exposed in this position, the best course of action is likely to remove exposed implant at least temporarily until infection resolves. Discussed leaving situation as is for now and to continue antibiotics for several more days with the hope that, with debridement , that implants can be saved. Patient requests no surgical drainage at this time and re-evaluating in several days after additional antibiotics. I believe there is little to lose with this approach and, although I don't believe drainage/debridement will be avoided, I think it may increase the likelihood that the implant can be salvaged. Thanks.
[2018-06-17] MEDS: ACETAMINOPHEN 325 MG TABLET (FP) PO PRN ×2 (12:44→23:57)
[2018-06-17] MEDS: PIPERACILLIN/TAZOB 3.375 GM 3.375 GM in DEXTROSE 5%-WATER - 50 ML IVPB SCH ×2 (15:37→21:57)
[2018-06-18] MEDS ORDERED: PIPERACILLIN/TAZOBACTAM 3.375 GM VIAL IVPB ONE ×4 (03:37→20:20)
[2018-06-18] MEDS ORDERED: DEXTROSE 5%-WATER - 50 ML IVPB ONE ×4 (03:37→20:20)
[2018-06-18] MEDS: PIPERACILLIN/TAZOB 3.375 GM 3.375 GM in DEXTROSE 5%-WATER - 50 ML IVPB SCH ×4 (03:47→21:42)
--- NOTE | 2018-06-18 08:08 | PN ---
Progress Note, Physician Chief Complaint: C/O Left breast pain History of Present Illness: 42 y/o young woman healthy no H/O HTN, DM S/P Silicone Breast Implant and removal of Saline Breast Implants, Abdominalplasty, and Hernia Repair all done, January 2018), Hernia Repair (2003), Who presents to the ED with left breast pain, erythema, swelling x 1 day. Patient reports having erythema to her right breast the day before now resolved. Patient denies discharge. Patient denies fever, chills, cough, dizziness, SOB, CP, AP, N/V/D, constipation, dysuria. Patient denies fall or trauma - Current Medication List Current Medications: Active Medications Acetaminophen (Tylenol -) 650 mg PO Q6H PRN PRN Reason: PAIN OR FEVER Last Admin: 06/17/18 23:57 Dose: 650 mg Docusate Sodium (Colace -) 100 mg PO DAILY [facility] Last Admin: 06/17/18 09:14 Dose: 100 mg Heparin Sodium (Porcine) (Heparin -) 5,000 unit SQ BID [facility] Last Admin: 06/17/18 21:59 Dose: 5,000 unit Piperacillin Sod/Tazobactam (Sod 3.375 gm/ Dextrose) 50 mls @ 100 mls/hr IVPB Q6H-IV [facility]; Protocol Last Admin: 06/18/18 03:47 Dose: 100 mls/hr Ibuprofen (Motrin -) 400 mg PO Q8H PRN PRN Reason: PAIN LEVEL 1-5 Ondansetron HCl (Zofran Injection) 4 mg IVPUSH Q6H PRN PRN Reason: NAUSEA AND/OR VOMITING Oxycodone HCl (Roxicodone -) 5 mg PO Q6H PRN PRN Reason: PAIN LEVEL 7 - 10 Last Admin: 06/17/18 21:58 Dose: 5 mg - Objective Vital Signs: Vital Signs Temperature 98.3 F 06/18/18 06:02 Pulse Rate 69 06/18/18 06:02 Respiratory Rate 18 06/18/18 06:02 Blood Pressure 127/72 06/18/18 06:02 O2 Sat by Pulse Oximetry (%) 97 06/17/18 21:00 Young F not in distress c/o Left breast pain HEENT: Mm moist, no anemia NECK: No JVd No Bruit CHEST: Left Breast tenderness and indurated area on 6 o clock with fluctuation and necrosis of covering skin, CTA B/L CVS: S1S2 r no m/g/r ABD: No distention non tender Bs + EXT & BACK: No edema feet, no calf tenderness DEVELOPMENT EXECUTIVE:AOX3 non focal Labs: CBC, BMP 06/17/18 08:00 06/17/18 08:00 INR, PTT INR 1.11 (0.83-1.09) H 06/16/18 00:17 Problem List - Problems (1) Infection of breast implant Assessment/Plan: Present with Left breast pain Ultrasound shows sub cutaneous abscess on empiric abx coverage, developing skin necrosis, will F/U Plastic surgery appreciated will f/u clinically NSAID for pain control, cold compresses. need culture and sensitivity if abscess burst, as per Plastic surgery note chances of abscess rupture is high. Code(s): T85.79XA - INFECT/INFLM REACTION DUE TO OTH INT PROSTH DEV/GRFT, INIT Qualifiers: Encounter type: initial encounter Qualified Code(s): T85.79XA - Infection and inflammatory reaction due to other internal prosthetic devices, implants and grafts, initial encounter
[2018-06-18] MEDS: DOCUSATE SODIUM 100 MG CAPSULE (FP) PO SCH (09:08)
[2018-06-18] MEDS: HEPARIN NA (PORCINE) 5,000 UNITS/ML 1ML VIAL SQ SCH ×2 (09:09→21:42)
--- NOTE | 2018-06-18 11:22 | PN ---
Progress Note, Physician History of Present Illness: stable patients breast abscess probably ready to open redness is better tenderness still present plastic surgery note noted - Current Medication List Current Medications: Active Medications Acetaminophen (Tylenol -) 650 mg PO Q6H PRN PRN Reason: PAIN OR FEVER Last Admin: 06/17/18 23:57 Dose: 650 mg Docusate Sodium (Colace -) 100 mg PO DAILY [facility] Last Admin: 06/18/18 09:08 Dose: 100 mg Heparin Sodium (Porcine) (Heparin -) 5,000 unit SQ BID [facility] Last Admin: 06/18/18 09:09 Dose: 5,000 unit Piperacillin Sod/Tazobactam (Sod 3.375 gm/ Dextrose) 50 mls @ 100 mls/hr IVPB Q6H-IV [facility]; Protocol Last Admin: 06/18/18 09:08 Dose: 100 mls/hr Vancomycin HCl 1,250 mg/ (Dextrose) 250 mls @ 250 mls/2 hr IVPB Q24H [facility]; Protocol Ibuprofen (Motrin -) 400 mg PO Q8H PRN PRN Reason: PAIN LEVEL 1-5 Ondansetron HCl (Zofran Injection) 4 mg IVPUSH Q6H PRN PRN Reason: NAUSEA AND/OR VOMITING Oxycodone HCl (Roxicodone -) 5 mg PO Q6H PRN PRN Reason: PAIN LEVEL 7 - 10 Last Admin: 06/17/18 21:58 Dose: 5 mg - Objective Vital Signs: Vital Signs Temperature 98.3 F 06/18/18 06:02 Pulse Rate 69 06/18/18 06:02 Respiratory Rate 20 06/18/18 09:00 Blood Pressure 127/72 06/18/18 06:02 O2 Sat by Pulse Oximetry (%) 100 06/18/18 09:00 Constitutional: Yes: Calm, Mild Distress Cardiovascular: Yes: Regular Rate and Rhythm Respiratory: Yes: Regular, CTA Bilaterally Gastrointestinal: Yes: Normal Bowel Sounds, Soft Musculoskeletal: Yes: WNL Extremities: Yes: WNL Neurological: Yes: Alert, Oriented Psychiatric: Yes: Alert, Oriented Labs: CBC, BMP 06/17/18 08:00 06/17/18 08:00 INR, PTT INR 1.11 (0.83-1.09) H 06/16/18 00:17 Assessment/Plan 42 y/o woman Admitted for Left Breast Abscess, Cellulitis secondary to Breast Implants for further evaluation of their emergent condition. Plan: 1. ID Abscess L- Breast Cellulitis of L- Breast Problem List - Problem (1) Left breast abscess Code(s): N61.1 - ABSCESS OF THE BREAST AND NIPPLE (2) Infection of breast implant Code(s): T85.79XA - INFECT/INFLM REACTION DUE TO OTH INT PROSTH DEV/GRFT, INIT Qualifiers: Encounter type: initial encounter Qualified Code(s): T85.79XA - Infection and inflammatory reaction due to other internal prosthetic devices, implants and grafts, initial encounter plan continue abx needs drainage patient says that plastics planning to do surgery on tuesday cx to be send rest continue current mgmt
[2018-06-18] MEDS: oxyCODONE HCL 5 MG TABLET PO PRN ×2 (11:32→21:37)
[2018-06-18] MEDS: VANCOMYCIN 1,250 MG in DEXTROSE 5%-WATER - 250 ML IVPB SCH (12:16)
[2018-06-18] MEDS: ACETAMINOPHEN 325 MG TABLET (FP) PO PRN ×2 (12:29→21:41)
[2018-06-19] MEDS: IBUPROFEN 400 MG TABLET (FP) PO PRN ×3 (00:44→15:15)
[2018-06-19] MEDS ORDERED: oxyCODONE HCL 5 MG TABLET PO ONE (00:50)
[2018-06-19] MEDS ORDERED: PIPERACILLIN/TAZOBACTAM 3.375 GM VIAL IVPB ONE ×4 (03:51→21:06)
[2018-06-19] MEDS ORDERED: DEXTROSE 5%-WATER - 50 ML IVPB ONE ×4 (03:51→21:06)
[2018-06-19] MEDS: PIPERACILLIN/TAZOB 3.375 GM 3.375 GM in DEXTROSE 5%-WATER - 50 ML IVPB SCH ×4 (03:54→21:17)
[2018-06-19] MEDS: oxyCODONE HCL 5 MG TABLET PO PRN ×4 (03:55→23:05)
[2018-06-19] MEDS: ACETAMINOPHEN 325 MG TABLET (FP) PO PRN ×4 (03:56→23:05)
[2018-06-19 07:10] LABS: BASO % 0.6 % (0-2.0); HEMOGLOBIN 11.6 GM/dL (10.7-15.3); LYMPH % 24.3 % (8-40); MCH 24.4 pg (25.7-33.7); MCHC 33.2 g/dl (32.0-36.0); MEAN CELL VOLUME 73.4 fl (80-96); MEAN PLT VOLUME 8.2 fl (7.5-11.1); MONO % 8.7 % (3.8-10.2); NEUT % 63.4 % (42.8-82.8); PLATELET COUNT 374 K/MM3 (134-434); RBC 4.76 M/mm3 (3.60-5.2); RDW 17.6 % (11.6-15.6); WHITE BLOOD COUNT 7.4 K/mm3 (4.0-10.0)
[2018-06-19 07:23] LABS: ANION GAP 5 MMOL/L (8-16); BLOOD UREA NITROGEN 16 mg/dL (7-18); CALCIUM 8.6 mg/dL (8.5-10.1); CHLORIDE 104 mmol/L (98-107); CO2 28 mmol/L (21-32); CREATININE 0.9 mg/dL (0.55-1.3); GLUCOSE,RANDOM 82 mg/dL (74-106); POTASSIUM 4.1 mmol/L (3.5-5.1); SODIUM 137 mmol/L (136-145)
[2018-06-19] MEDS: HEPARIN NA (PORCINE) 5,000 UNITS/ML 1ML VIAL SQ SCH ×2 (09:52→21:19)
[2018-06-19] MEDS: DOCUSATE SODIUM 100 MG CAPSULE (FP) PO SCH (09:53)
[2018-06-19] MEDS ORDERED: MORPHINE SULFATE 2 MG/ML VIAL IVPUSH PRN (10:48)
--- NOTE | 2018-06-19 10:55 | PN ---
Progress Note, Physician Chief Complaint: Ms Moffett complains of worsening L breast pain. No cp, sob, n/v. - Current Medication List Current Medications: Active Medications Acetaminophen (Tylenol -) 650 mg PO Q6H PRN PRN Reason: PAIN OR FEVER Last Admin: 06/19/18 09:54 Dose: 650 mg Docusate Sodium (Colace -) 100 mg PO DAILY [facility] Last Admin: 06/19/18 09:53 Dose: 100 mg Heparin Sodium (Porcine) (Heparin -) 5,000 unit SQ BID [facility] Last Admin: 06/19/18 09:52 Dose: 5,000 unit Piperacillin Sod/Tazobactam (Sod 3.375 gm/ Dextrose) 50 mls @ 100 mls/hr IVPB Q6H-IV [facility]; Protocol Last Admin: 06/19/18 09:53 Dose: 100 mls/hr Vancomycin HCl 1,250 mg/ (Dextrose) 250 mls @ 250 mls/2 hr IVPB Q24H [facility]; Protocol Last Admin: 06/18/18 12:16 Dose: 250 mls/2 hr Ibuprofen (Motrin -) 400 mg PO Q8H PRN PRN Reason: PAIN LEVEL 1-5 Last Admin: 06/19/18 07:40 Dose: 400 mg Morphine Sulfate (Morphine Injection -) 0.5 mg IVPUSH Q6H PRN PRN Reason: PAIN LEVEL 7 - 10 Ondansetron HCl (Zofran Injection) 4 mg IVPUSH Q6H PRN PRN Reason: NAUSEA AND/OR VOMITING Oxycodone HCl (Roxicodone -) 5 mg PO Q6H PRN PRN Reason: PAIN LEVEL 7 - 10 Last Admin: 06/19/18 09:53 Dose: 5 mg - Objective Vital Signs: Vital Signs Temperature 36.5 C 06/19/18 05:33 Pulse Rate 64 06/19/18 05:33 Respiratory Rate 20 06/19/18 05:33 Blood Pressure 120/68 06/19/18 05:33 O2 Sat by Pulse Oximetry (%) 100 06/18/18 21:00 Constitutional: Yes: Well Nourished, No Distress, Calm Cardiovascular: Yes: Regular Rate and Rhythm. No: Gallop, Murmur, Rub Respiratory: Yes: Regular, CTA Bilaterally. No: Rales, Rhonchi, Wheezes Gastrointestinal: Yes: Normal Bowel Sounds, Soft. No: Distention, Tenderness Extremities: Yes: WNL Edema: No Integumentary: Yes: Other (L breast examined with RN in room, erythema with induration) Labs: CBC, BMP 06/19/18 06:15 06/19/18 06:15 INR, PTT INR 1.11 (0.83-1.09) H 06/16/18 00:17 Problem List - Problems (1) Cellulitis of breast Code(s): N61.0 - MASTITIS WITHOUT ABSCESS (2) Infection of breast implant Code(s): T85.79XA - INFECT/INFLM REACTION DUE TO OTH INT PROSTH DEV/GRFT, INIT Qualifiers: Encounter type: initial encounter Qualified Code(s): T85.79XA - Infection and inflammatory reaction due to other internal prosthetic devices, implants and grafts, initial encounter (3) Left breast abscess Code(s): N61.1 - ABSCESS OF THE BREAST AND NIPPLE Assessment/Plan -case d/w patient -continue vancomycin and zosyn -plastic surgery consulted and following -suspect will need surgery and removal of implant -ID and plastic surgery following, await further recommendations -add prn morphine for improved pain control
--- NOTE | 2018-06-19 12:07 | PN ---
Progress Note, Physician History of Present Illness: stable erythema better still pain in the breast - Current Medication List Current Medications: Active Medications Acetaminophen (Tylenol -) 650 mg PO Q6H PRN PRN Reason: PAIN OR FEVER Last Admin: 06/19/18 09:54 Dose: 650 mg Docusate Sodium (Colace -) 100 mg PO DAILY [facility] Last Admin: 06/19/18 09:53 Dose: 100 mg Heparin Sodium (Porcine) (Heparin -) 5,000 unit SQ BID [facility] Last Admin: 06/19/18 09:52 Dose: 5,000 unit Piperacillin Sod/Tazobactam (Sod 3.375 gm/ Dextrose) 50 mls @ 100 mls/hr IVPB Q6H-IV [facility]; Protocol Last Admin: 06/19/18 09:53 Dose: 100 mls/hr Vancomycin HCl 1,250 mg/ (Dextrose) 250 mls @ 250 mls/2 hr IVPB Q24H [facility]; Protocol Last Admin: 06/18/18 12:16 Dose: 250 mls/2 hr Ibuprofen (Motrin -) 400 mg PO Q8H PRN PRN Reason: PAIN LEVEL 1-5 Last Admin: 06/19/18 07:40 Dose: 400 mg Morphine Sulfate (Morphine Sulfate) 0.5 mg IVPUSH Q6H PRN PRN Reason: PAIN LEVEL 7 - 10 Ondansetron HCl (Zofran Injection) 4 mg IVPUSH Q6H PRN PRN Reason: NAUSEA AND/OR VOMITING Oxycodone HCl (Roxicodone -) 5 mg PO Q6H PRN PRN Reason: PAIN LEVEL 7 - 10 Last Admin: 06/19/18 09:53 Dose: 5 mg - Objective Vital Signs: Vital Signs Temperature 97.7 F 06/19/18 05:33 Pulse Rate 64 06/19/18 05:33 Respiratory Rate 20 06/19/18 05:33 Blood Pressure 120/68 06/19/18 05:33 O2 Sat by Pulse Oximetry (%) 100 06/18/18 21:00 Constitutional: Yes: No Distress, Calm, Obese Cardiovascular: Yes: Regular Rate and Rhythm Respiratory: Yes: Regular, CTA Bilaterally Gastrointestinal: Yes: Normal Bowel Sounds, Soft Breast(s): Yes: Left Musculoskeletal: Yes: WNL Extremities: Yes: WNL Neurological: Yes: Alert, Oriented Psychiatric: Yes: Alert, Oriented Labs: CBC, BMP 06/19/18 06:15 06/19/18 06:15 INR, PTT INR 1.11 (0.83-1.09) H 06/16/18 00:17 Assessment/Plan 42 y/o woman Admitted for Left Breast Abscess, Cellulitis secondary to Breast Implants for further evaluation of their emergent condition. Plan: 1. ID Abscess L- Breast Cellulitis of L- Breast Problem List - Problem (1) Left breast abscess Code(s): N61.1 - ABSCESS OF THE BREAST AND NIPPLE (2) Infection of breast implant Code(s): T85.79XA - INFECT/INFLM REACTION DUE TO OTH INT PROSTH DEV/GRFT, INIT Qualifiers: Encounter type: initial encounter Qualified Code(s): T85.79XA - Infection and inflammatory reaction due to other internal prosthetic devices, implants and grafts, initial encounter plan continue abx await for finalization of the cx report plastic surgery note noted rest as per team
[2018-06-19] MEDS ORDERED: PT OWN MED DRAWER 7, Y5N ONE (12:11)
[2018-06-19] MEDS: VANCOMYCIN 1,250 MG in DEXTROSE 5%-WATER - 250 ML IVPB SCH (12:14)
[2018-06-20] MEDS ORDERED: DEXTROSE 5%-WATER - 50 ML IVPB ONE ×4 (02:16→21:44)
[2018-06-20] MEDS ORDERED: PIPERACILLIN/TAZOBACTAM 3.375 GM VIAL IVPB ONE ×4 (02:16→21:44)
[2018-06-20] MEDS: PIPERACILLIN/TAZOB 3.375 GM 3.375 GM in DEXTROSE 5%-WATER - 50 ML IVPB SCH ×4 (02:18→22:07)
[2018-06-20] MEDS: DOCUSATE SODIUM 100 MG CAPSULE (FP) PO SCH (09:32)
[2018-06-20] MEDS: HEPARIN NA (PORCINE) 5,000 UNITS/ML 1ML VIAL SQ SCH ×2 (09:32→22:08)
[2018-06-20] MEDS: oxyCODONE HCL 5 MG TABLET PO PRN ×2 (10:46→22:04)
[2018-06-20] MEDS: ACETAMINOPHEN 325 MG TABLET (FP) PO PRN ×2 (10:47→22:06)
[2018-06-20] MEDS: VANCOMYCIN 1,250 MG in DEXTROSE 5%-WATER - 250 ML IVPB SCH (10:50)
--- NOTE | 2018-06-20 11:51 | PN ---
Progress Note, Physician History of Present Illness: abscess has ruputured cx ahve been send pain - Current Medication List Current Medications: Active Medications Acetaminophen (Tylenol -) 650 mg PO Q6H PRN PRN Reason: PAIN OR FEVER Last Admin: 06/20/18 10:47 Dose: 650 mg Docusate Sodium (Colace -) 100 mg PO DAILY [facility] Last Admin: 06/20/18 09:32 Dose: Not Given Heparin Sodium (Porcine) (Heparin -) 5,000 unit SQ BID [facility] Last Admin: 06/20/18 09:32 Dose: 5,000 unit Piperacillin Sod/Tazobactam (Sod 3.375 gm/ Dextrose) 50 mls @ 100 mls/hr IVPB Q6H-IV [facility]; Protocol Last Admin: 06/20/18 08:38 Dose: 100 mls/hr Vancomycin HCl 1,250 mg/ (Dextrose) 250 mls @ 250 mls/2 hr IVPB Q24H [facility]; Protocol Last Admin: 06/20/18 10:50 Dose: 250 mls/2 hr Ibuprofen (Motrin -) 400 mg PO Q8H PRN PRN Reason: PAIN LEVEL 1-5 Last Admin: 06/19/18 15:15 Dose: 400 mg Morphine Sulfate (Morphine Sulfate) 0.5 mg IVPUSH Q6H PRN PRN Reason: PAIN LEVEL 7 - 10 Ondansetron HCl (Zofran Injection) 4 mg IVPUSH Q6H PRN PRN Reason: NAUSEA AND/OR VOMITING Oxycodone HCl (Roxicodone -) 5 mg PO Q6H PRN PRN Reason: PAIN LEVEL 7 - 10 Last Admin: 06/20/18 10:46 Dose: 5 mg - Objective Vital Signs: Vital Signs Temperature 98.6 F 06/20/18 08:31 Pulse Rate 90 06/20/18 08:31 Respiratory Rate 20 06/20/18 09:00 Blood Pressure 111/72 06/20/18 08:31 O2 Sat by Pulse Oximetry (%) 98 06/20/18 09:00 Constitutional: Yes: Calm, Mild Distress Cardiovascular: Yes: Regular Rate and Rhythm Respiratory: Yes: Regular, CTA Bilaterally Gastrointestinal: Yes: Normal Bowel Sounds, Soft Breast(s): Yes: Other (left breast abscess) Musculoskeletal: Yes: WNL Extremities: Yes: WNL Labs: CBC, BMP 06/19/18 06:15 06/19/18 06:15 INR, PTT INR 1.11 (0.83-1.09) H 06/16/18 00:17 Assessment/Plan 42 y/o woman Admitted for Left Breast Abscess, Cellulitis secondary to Breast Implants for further evaluation of their emergent condition. Plan: 1. ID Abscess L- Breast Cellulitis of L- Breast Problem List - Problem (1) Left breast abscess Code(s): N61.1 - ABSCESS OF THE BREAST AND NIPPLE (2) Infection of breast implant Code(s): T85.79XA - INFECT/INFLM REACTION DUE TO OTH INT PROSTH DEV/GRFT, INIT Qualifiers: Encounter type: initial encounter Qualified Code(s): T85.79XA - Infection and inflammatory reaction due to other internal prosthetic devices, implants and grafts, initial encounter plan continue abx needs drainage await for final plan cx send rest continue current mgmt
--- NOTE | 2018-06-20 12:38 | PN ---
Progress Note, Physician Chief Complaint: Ms Moffett complains of L breast pain, says it is now draining. Wants to know if still needs surgery. No cp, sob, n/v. - Current Medication List Current Medications: Active Medications Acetaminophen (Tylenol -) 650 mg PO Q6H PRN PRN Reason: PAIN OR FEVER Last Admin: 06/20/18 10:47 Dose: 650 mg Docusate Sodium (Colace -) 100 mg PO DAILY [facility] Last Admin: 06/20/18 09:32 Dose: Not Given Heparin Sodium (Porcine) (Heparin -) 5,000 unit SQ BID [facility] Last Admin: 06/20/18 09:32 Dose: 5,000 unit Piperacillin Sod/Tazobactam (Sod 3.375 gm/ Dextrose) 50 mls @ 100 mls/hr IVPB Q6H-IV [facility]; Protocol Last Admin: 06/20/18 08:38 Dose: 100 mls/hr Vancomycin HCl 1,250 mg/ (Dextrose) 250 mls @ 250 mls/2 hr IVPB Q24H [facility]; Protocol Last Admin: 06/20/18 10:50 Dose: 250 mls/2 hr Ibuprofen (Motrin -) 400 mg PO Q8H PRN PRN Reason: PAIN LEVEL 1-5 Last Admin: 06/19/18 15:15 Dose: 400 mg Morphine Sulfate (Morphine Sulfate) 0.5 mg IVPUSH Q6H PRN PRN Reason: PAIN LEVEL 7 - 10 Ondansetron HCl (Zofran Injection) 4 mg IVPUSH Q6H PRN PRN Reason: NAUSEA AND/OR VOMITING Oxycodone HCl (Roxicodone -) 5 mg PO Q6H PRN PRN Reason: PAIN LEVEL 7 - 10 Last Admin: 06/20/18 10:46 Dose: 5 mg - Objective Vital Signs: Vital Signs Temperature 37.0 C 06/20/18 08:31 Pulse Rate 90 06/20/18 08:31 Respiratory Rate 20 06/20/18 09:00 Blood Pressure 111/72 06/20/18 08:31 O2 Sat by Pulse Oximetry (%) 98 06/20/18 09:00 Constitutional: Yes: Well Nourished, No Distress, Calm Cardiovascular: Yes: Regular Rate and Rhythm. No: Gallop, Murmur, Rub Respiratory: Yes: Regular, CTA Bilaterally. No: Rales, Rhonchi, Wheezes Gastrointestinal: Yes: Normal Bowel Sounds, Soft. No: Distention, Tenderness Extremities: Yes: WNL Edema: No Integumentary: Yes: Other (abscess with purulent fluid drainage. Decreased induration on the left side of the abscess but still with induration on the right. Erythema decreased overall today) Labs: CBC, BMP 06/19/18 06:15 06/19/18 06:15 INR, PTT INR 1.11 (0.83-1.09) H 06/16/18 00:17 Problem List - Problems (1) Cellulitis of breast Code(s): N61.0 - MASTITIS WITHOUT ABSCESS (2) Infection of breast implant Code(s): T85.79XA - INFECT/INFLM REACTION DUE TO OTH INT PROSTH DEV/GRFT, INIT Qualifiers: Encounter type: initial encounter Qualified Code(s): T85.79XA - Infection and inflammatory reaction due to other internal prosthetic devices, implants and grafts, initial encounter (3) Left breast abscess Code(s): N61.1 - ABSCESS OF THE BREAST AND NIPPLE Assessment/Plan -case d/w patient -continue vancomycin and zosyn -appreciate ID assistance -awaiting recommendations from plastic surgery if needs surgical intervention or not
[2018-06-20 14:14] LABS: BASO % 0.3 % (0-2.0); EOS % 2.6 % (0-4.5); HEMATOCRIT 36.6 % (32.4-45.2); HEMOGLOBIN 12.2 GM/dL (10.7-15.3); LYMPH % 22.3 % (8-40); MCH 24.6 pg (25.7-33.7); MCHC 33.3 g/dl (32.0-36.0); MEAN CELL VOLUME 73.8 fl (80-96); MEAN PLT VOLUME 8.3 fl (7.5-11.1); MONO % 5.6 % (3.8-10.2); NEUT % 69.2 % (42.8-82.8); PLATELET COUNT 428 K/MM3 (134-434); RBC 4.95 M/mm3 (3.60-5.2); WHITE BLOOD COUNT 8.2 K/mm3 (4.0-10.0)
--- NOTE | 2018-06-20 17:09 | CONSULT ---
Consult Consult Specialty:: Plastic Surgery - Past Medical History ...LMP: 06/09/18 ...: No - Alcohol/Substance Use Hx Alcohol Use: Yes (socially) - Smoking History Smoking history: Never smoked Have you smoked in the past 12 months: No Aproximately how many cigarettes per day: 0 Home Medications - Allergies Allergies/Adverse Reactions: Allergies Allergy/AdvReac Type Severity Reaction Status Date / Time No Known Allergies Allergy Verified 06/15/18 23:24 - Home Medications Home Medications: Ambulatory Orders NK [No Known Home Medication] 06/16/18 Physical Exam Vital Signs: Vital Signs Temperature 98.1 F 06/20/18 13:36 Pulse Rate 76 06/20/18 13:36 Respiratory Rate 20 06/20/18 13:36 Blood Pressure 115/59 L 06/20/18 13:36 O2 Sat by Pulse Oximetry (%) 98 06/20/18 09:00 Labs: CBC, BMP 06/20/18 13:20 06/19/18 06:15 Assessment/Plan Area at superior aspect of left breast vertical limb now open as expected. Erythema resolved. Discussed with patient that, although this wound may heal over implant, I believe that to be unlikely. Implant is not currently exposed. Discussed removing implant, revising wound, and considering replacement is 6- 12 weeks with a smaller implant. Surgery is not emergent and ahppy to put tpatient on surgical schwedule for Tuesday. OK for patient to be discharged until then pending ID followup. Will also need to check insurance coverage to see if I can surgically treat patient.
[2018-06-21] MEDS ORDERED: PIPERACILLIN/TAZOBACTAM 3.375 GM VIAL IVPB ONE ×4 (02:44→20:49)
[2018-06-21] MEDS ORDERED: DEXTROSE 5%-WATER - 50 ML IVPB ONE ×4 (02:45→20:49)
[2018-06-21] MEDS: PIPERACILLIN/TAZOB 3.375 GM 3.375 GM in DEXTROSE 5%-WATER - 50 ML IVPB SCH ×4 (03:11→21:11)
[2018-06-21 07:28] LABS: BASO % 0.4 % (0-2.0); EOS % 2.3 % (0-4.5); HEMATOCRIT 36.5 % (32.4-45.2); HEMOGLOBIN 11.5 GM/dL (10.7-15.3); LYMPH % 23.3 % (8-40); MCH 23.2 pg (25.7-33.7); MCHC 31.6 g/dl (32.0-36.0); MEAN CELL VOLUME 73.4 fl (80-96); MONO % 7.3 % (3.8-10.2); NEUT % 66.7 % (42.8-82.8); PLATELET COUNT 422 K/MM3 (134-434); RBC 4.98 M/mm3 (3.60-5.2); RDW 18.2 % (11.6-15.6); WHITE BLOOD COUNT 7.4 K/mm3 (4.0-10.0)
[2018-06-21 08:34] LABS: ANION GAP 7 MMOL/L (8-16); BLOOD UREA NITROGEN 13 mg/dL (7-18); CALCIUM 8.9 mg/dL (8.5-10.1); CHLORIDE 103 mmol/L (98-107); CO2 27 mmol/L (21-32); CREATININE 0.8 mg/dL (0.55-1.3); GLUCOSE,RANDOM 75 mg/dL (74-106); PHOSPHOROUS 3.4 mg/dL (2.5-4.9); POTASSIUM 4.2 mmol/L (3.5-5.1); SODIUM 137 mmol/L (136-145)
[2018-06-21] MEDS: DOCUSATE SODIUM 100 MG CAPSULE (FP) PO SCH (09:14)
[2018-06-21] MEDS: HEPARIN NA (PORCINE) 5,000 UNITS/ML 1ML VIAL SQ SCH ×2 (09:14→21:11)
[2018-06-21] MEDS: ACETAMINOPHEN 325 MG TABLET (FP) PO PRN ×2 (09:22→19:21)
[2018-06-21] MEDS: oxyCODONE HCL 5 MG TABLET PO PRN ×2 (09:22→19:21)
--- NOTE | 2018-06-21 10:32 | PN ---
Progress Note, Physician Chief Complaint: Slight discharged from wound induration and pain improving - Current Medication List Current Medications: Active Medications Acetaminophen (Tylenol -) 650 mg PO Q6H PRN PRN Reason: PAIN OR FEVER Last Admin: 06/21/18 09:22 Dose: 650 mg Docusate Sodium (Colace -) 100 mg PO DAILY [facility] Last Admin: 06/21/18 09:14 Dose: 100 mg Heparin Sodium (Porcine) (Heparin -) 5,000 unit SQ BID [facility] Last Admin: 06/21/18 09:14 Dose: 5,000 unit Piperacillin Sod/Tazobactam (Sod 3.375 gm/ Dextrose) 50 mls @ 100 mls/hr IVPB Q6H-IV [facility]; Protocol Last Admin: 06/21/18 09:13 Dose: 100 mls/hr Vancomycin HCl 1,250 mg/ (Dextrose) 250 mls @ 250 mls/2 hr IVPB Q24H [facility]; Protocol Last Admin: 06/20/18 10:50 Dose: 250 mls/2 hr Ibuprofen (Motrin -) 400 mg PO Q8H PRN PRN Reason: PAIN LEVEL 1-5 Last Admin: 06/19/18 15:15 Dose: 400 mg Morphine Sulfate (Morphine Sulfate) 0.5 mg IVPUSH Q6H PRN PRN Reason: PAIN LEVEL 7 - 10 Ondansetron HCl (Zofran Injection) 4 mg IVPUSH Q6H PRN PRN Reason: NAUSEA AND/OR VOMITING Oxycodone HCl (Roxicodone -) 5 mg PO Q6H PRN PRN Reason: PAIN LEVEL 7 - 10 Last Admin: 06/21/18 09:22 Dose: 5 mg - Objective Vital Signs: Vital Signs Temperature 98.2 F 06/21/18 06:33 Pulse Rate 75 06/21/18 06:33 Respiratory Rate 20 06/21/18 06:33 Blood Pressure 121/68 06/21/18 06:33 O2 Sat by Pulse Oximetry (%) 98 06/20/18 09:00 Young F not in distress c/o Left breast pain HEENT: Mm moist, no anemia NECK: No JVd No Bruit CHEST: Left Breast tenderness and indurated area on 6 o clock with discharging wound , CTA B/L CVS: S1S2 r no m/g/r ABD: No distention non tender Bs + EXT & BACK: No edema feet, no calf tenderness MOLD INJECTOR:AOX3 non focal Labs: CBC, BMP 06/21/18 06:10 06/21/18 06:10 INR, PTT INR 1.11 (0.83-1.09) H 06/16/18 00:17 Problem List - Problems (1) Infection of breast implant Assessment/Plan: Present with Left breast pain Ultrasound shows sub cutaneous abscess on empiric abx coverage, developing skin necrosis, will F/U Plastic surgery appreciated will f/u clinically NSAID for pain control, cold compresses. Gram staining is - ve, culture and sensitivity is pending, re evaluated by ID and Plastic surgery recommended removal of implant . Code(s): T85.79XA - INFECT/INFLM REACTION DUE TO OTH INT PROSTH DEV/GRFT, INIT Qualifiers: Encounter type: initial encounter Qualified Code(s): T85.79XA - Infection and inflammatory reaction due to other internal prosthetic devices, implants and grafts, initial encounter
--- NOTE | 2018-06-21 11:16 | PN ---
Progress Note, Physician History of Present Illness: stable no new issues - Current Medication List Current Medications: Active Medications Acetaminophen (Tylenol -) 650 mg PO Q6H PRN PRN Reason: PAIN OR FEVER Last Admin: 06/21/18 09:22 Dose: 650 mg Docusate Sodium (Colace -) 100 mg PO DAILY [facility] Last Admin: 06/21/18 09:14 Dose: 100 mg Heparin Sodium (Porcine) (Heparin -) 5,000 unit SQ BID [facility] Last Admin: 06/21/18 09:14 Dose: 5,000 unit Piperacillin Sod/Tazobactam (Sod 3.375 gm/ Dextrose) 50 mls @ 100 mls/hr IVPB Q6H-IV [facility]; Protocol Last Admin: 06/21/18 09:13 Dose: 100 mls/hr Vancomycin HCl 1,250 mg/ (Dextrose) 250 mls @ 250 mls/2 hr IVPB Q24H [facility]; Protocol Last Admin: 06/20/18 10:50 Dose: 250 mls/2 hr Ibuprofen (Motrin -) 400 mg PO Q8H PRN PRN Reason: PAIN LEVEL 1-5 Last Admin: 06/19/18 15:15 Dose: 400 mg Morphine Sulfate (Morphine Sulfate) 0.5 mg IVPUSH Q6H PRN PRN Reason: PAIN LEVEL 7 - 10 Ondansetron HCl (Zofran Injection) 4 mg IVPUSH Q6H PRN PRN Reason: NAUSEA AND/OR VOMITING Oxycodone HCl (Roxicodone -) 5 mg PO Q6H PRN PRN Reason: PAIN LEVEL 7 - 10 Last Admin: 06/21/18 09:22 Dose: 5 mg - Objective Vital Signs: Vital Signs Temperature 98.2 F 06/21/18 06:33 Pulse Rate 75 06/21/18 06:33 Respiratory Rate 20 06/21/18 06:33 Blood Pressure 121/68 06/21/18 06:33 O2 Sat by Pulse Oximetry (%) 98 06/20/18 09:00 Constitutional: Yes: No Distress, Calm Cardiovascular: Yes: Regular Rate and Rhythm Respiratory: Yes: Regular, CTA Bilaterally Gastrointestinal: Yes: Normal Bowel Sounds, Soft Breast(s): Yes: Left (abscess) Neurological: Yes: Alert, Oriented Labs: CBC, BMP 06/21/18 06:10 06/21/18 06:10 INR, PTT INR 1.11 (0.83-1.09) H 06/16/18 00:17 Assessment/Plan 42 y/o woman Admitted for Left Breast Abscess, Cellulitis secondary to Breast Implants for further evaluation of their emergent condition. Plan: 1. ID Abscess L- Breast Cellulitis of L- Breast Problem List - Problem (1) Left breast abscess Code(s): N61.1 - ABSCESS OF THE BREAST AND NIPPLE (2) Infection of breast implant Code(s): T85.79XA - INFECT/INFLM REACTION DUE TO OTH INT PROSTH DEV/GRFT, INIT Qualifiers: Encounter type: initial encounter Qualified Code(s): T85.79XA - Infection and inflammatory reaction due to other internal prosthetic devices, implants and grafts, initial encounter plan continue abx await for finalization of the cx report plastic surgery note noted rest as per team once we have final results then will decide
[2018-06-21] MEDS: VANCOMYCIN 1,250 MG in DEXTROSE 5%-WATER - 250 ML IVPB SCH (11:33)
[2018-06-21] MEDS: IBUPROFEN 400 MG TABLET (FP) PO PRN ×2 (14:54→23:24)
[2018-06-22] MEDS ORDERED: DEXTROSE 5%-WATER - 50 ML IVPB ONE ×2 (02:41→09:12)
[2018-06-22] MEDS ORDERED: PIPERACILLIN/TAZOBACTAM 3.375 GM VIAL IVPB ONE ×2 (02:41→09:11)
[2018-06-22] MEDS: PIPERACILLIN/TAZOB 3.375 GM 3.375 GM in DEXTROSE 5%-WATER - 50 ML IVPB SCH ×2 (02:52→09:45)
[2018-06-22] MEDS: oxyCODONE HCL 5 MG TABLET PO PRN ×2 (02:54→09:58)
[2018-06-22] MEDS: ACETAMINOPHEN 325 MG TABLET (FP) PO PRN ×2 (02:54→09:58)
[2018-06-22 07:28] LABS: BASO % 0.5 % (0-2.0); EOS % 2.7 % (0-4.5); HEMATOCRIT 35.5 % (32.4-45.2); HEMOGLOBIN 11.2 GM/dL (10.7-15.3); LYMPH % 29.6 % (8-40); MCH 23.4 pg (25.7-33.7); MCHC 31.6 g/dl (32.0-36.0); NEUT % 57.2 % (42.8-82.8); PLATELET COUNT 379 K/MM3 (134-434); RDW 18.2 % (11.6-15.6); WHITE BLOOD COUNT 6.8 K/mm3 (4.0-10.0)
[2018-06-22 07:45] LABS: ANION GAP 9 MMOL/L (8-16); BLOOD UREA NITROGEN 15 mg/dL (7-18); CALCIUM 8.7 mg/dL (8.5-10.1); CHLORIDE 104 mmol/L (98-107); CO2 25 mmol/L (21-32); CREATININE 0.9 mg/dL (0.55-1.3); GLUCOSE,RANDOM 81 mg/dL (74-106); POTASSIUM 4.3 mmol/L (3.5-5.1); SODIUM 138 mmol/L (136-145)
[2018-06-22] MEDS: HEPARIN NA (PORCINE) 5,000 UNITS/ML 1ML VIAL SQ SCH (09:47)
[2018-06-22] MEDS: DOCUSATE SODIUM 100 MG CAPSULE (FP) PO SCH (09:47)
--- NOTE | 2018-06-22 10:11 | PN ---
Progress Note, Physician Chief Complaint: Slight discharged from wound induration and pain improving History of Present Illness: 42 y/o young woman healthy no H/O HTN, DM S/P Silicone Breast Implant and removal of Saline Breast Implants, Abdominalplasty, and Hernia Repair all done, January 2018), Hernia Repair (2003), Who presents to the ED with left breast pain, erythema, swelling x 1 day. Patient reports having erythema to her right breast the day before now resolved. Patient denies discharge. Patient denies fever, chills, cough, dizziness, SOB, CP, AP, N/V/D, constipation, dysuria. Patient denies fall or trauma - Current Medication List Current Medications: Active Medications Acetaminophen (Tylenol -) 650 mg PO Q6H PRN PRN Reason: PAIN OR FEVER Last Admin: 06/22/18 09:58 Dose: 650 mg Docusate Sodium (Colace -) 100 mg PO DAILY [facility] Last Admin: 06/22/18 09:47 Dose: 100 mg Heparin Sodium (Porcine) (Heparin -) 5,000 unit SQ BID [facility] Last Admin: 06/22/18 09:47 Dose: 5,000 unit Piperacillin Sod/Tazobactam (Sod 3.375 gm/ Dextrose) 50 mls @ 100 mls/hr IVPB Q6H-IV [facility]; Protocol Last Admin: 06/22/18 09:45 Dose: 100 mls/hr Vancomycin HCl 1,250 mg/ (Dextrose) 250 mls @ 250 mls/2 hr IVPB Q24H [facility]; Protocol Last Admin: 06/21/18 11:33 Dose: 250 mls/2 hr Ibuprofen (Motrin -) 400 mg PO Q8H PRN PRN Reason: PAIN LEVEL 1-5 Last Admin: 06/21/18 23:24 Dose: 400 mg Ondansetron HCl (Zofran Injection) 4 mg IVPUSH Q6H PRN PRN Reason: NAUSEA AND/OR VOMITING Oxycodone HCl (Roxicodone -) 5 mg PO Q6H PRN PRN Reason: PAIN LEVEL 7 - 10 Last Admin: 06/22/18 09:58 Dose: 5 mg - Objective Vital Signs: Vital Signs Temperature 98.0 F 06/22/18 06:30 Pulse Rate 64 06/22/18 06:30 Respiratory Rate 18 06/22/18 06:30 Blood Pressure 121/72 06/22/18 06:30 O2 Sat by Pulse Oximetry (%) 100 06/21/18 21:00 Young F not in distress c/o Left breast pain HEENT: Mm moist, no anemia NECK: No JVd No Bruit CHEST: Left Breast tenderness and indurated area on 6 o clock with discharging wound , CTA B/L CVS: S1S2 r no m/g/r ABD: No distention non tender Bs + EXT & BACK: No edema feet, no calf tenderness 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 Gram staining is - ve, culture and sensitivity is pending, re evaluated by ID and Plastic surgery recommended removal of implant . Code(s): T85.79XA - INFECT/INFLM REACTION DUE TO OTH INT PROSTH DEV/GRFT, INIT Qualifiers: Encounter type: initial encounter Qualified Code(s): T85.79XA - Infection and inflammatory reaction due to other internal prosthetic devices, implants and grafts, initial encounter
--- NOTE | 2018-06-22 12:16 | PN ---
Progress Note, Physician History of Present Illness: patient says she is having pain on the rt breast left breast with abscess pain - Current Medication List Current Medications: Active Medications Acetaminophen (Tylenol -) 650 mg PO Q6H PRN PRN Reason: PAIN OR FEVER Last Admin: 06/22/18 09:58 Dose: 650 mg Docusate Sodium (Colace -) 100 mg PO DAILY [facility] Last Admin: 06/22/18 09:47 Dose: 100 mg Heparin Sodium (Porcine) (Heparin -) 5,000 unit SQ BID [facility] Last Admin: 06/22/18 09:47 Dose: 5,000 unit Piperacillin Sod/Tazobactam (Sod 3.375 gm/ Dextrose) 50 mls @ 100 mls/hr IVPB Q6H-IV [facility]; Protocol Last Admin: 06/22/18 09:45 Dose: 100 mls/hr Vancomycin HCl 1,250 mg/ (Dextrose) 250 mls @ 250 mls/2 hr IVPB Q24H [facility]; Protocol Last Admin: 06/21/18 11:33 Dose: 250 mls/2 hr Ibuprofen (Motrin -) 400 mg PO Q8H PRN PRN Reason: PAIN LEVEL 1-5 Last Admin: 06/21/18 23:24 Dose: 400 mg Ondansetron HCl (Zofran Injection) 4 mg IVPUSH Q6H PRN PRN Reason: NAUSEA AND/OR VOMITING Oxycodone HCl (Roxicodone -) 5 mg PO Q6H PRN PRN Reason: PAIN LEVEL 7 - 10 Last Admin: 06/22/18 09:58 Dose: 5 mg - Objective Vital Signs: Vital Signs Temperature 98.0 F 06/22/18 06:30 Pulse Rate 64 06/22/18 06:30 Respiratory Rate 18 06/22/18 06:30 Blood Pressure 121/72 06/22/18 06:30 O2 Sat by Pulse Oximetry (%) 100 06/21/18 21:00 Constitutional: Yes: Calm, Mild Distress Eyes: Yes: Other Cardiovascular: Yes: Regular Rate and Rhythm Respiratory: Yes: Regular, CTA Bilaterally Gastrointestinal: Yes: Normal Bowel Sounds, Soft Breast(s): Yes: Breast Implants, Other (infection/abscess left side of the breast) Musculoskeletal: Yes: Other Neurological: Yes: Alert, Oriented Psychiatric: Yes: Alert, Oriented Labs: CBC, BMP 06/22/18 06:00 06/22/18 06:00 INR, PTT INR 1.11 (0.83-1.09) H 06/16/18 00:17 Assessment/Plan 42 y/o woman Admitted for Left Breast Abscess, Cellulitis secondary to Breast Implants for further evaluation of their emergent condition. Plan: 1. ID Abscess L- Breast Cellulitis of L- Breast Problem List - Problem (1) Left breast abscess Code(s): N61.1 - ABSCESS OF THE BREAST AND NIPPLE (2) Infection of breast implant Code(s): T85.79XA - INFECT/INFLM REACTION DUE TO OTH INT PROSTH DEV/GRFT, INIT Qualifiers: Encounter type: initial encounter Qualified Code(s): T85.79XA - Infection and inflammatory reaction due to other internal prosthetic devices, implants and grafts, initial encounter plan can change abx to clinda 300 mg every 8 hourly augmentin 875 mg po bid for 7 days patient needs to see a plastic surgeon rest continue current mgmt
--- NOTE | 2018-06-22 12:48 | DS ---
Physical Examination Vital Signs: Vital Signs Temperature 98.0 F 06/22/18 06:30 Pulse Rate 64 06/22/18 06:30 Respiratory Rate 18 06/22/18 06:30 Blood Pressure 121/72 06/22/18 06:30 O2 Sat by Pulse Oximetry (%) 100 06/21/18 21:00 Constitutional: Yes: Well Nourished, No Distress HENT: Yes: Normocephalic Neck: Yes: Trachea Midline. No: Decreased ROM, Lymphadenopathy Cardiovascular: Yes: Regular Rate and Rhythm. No: JVD, Gallop, Murmur, Rub, S1 , S2 Respiratory: Yes: Regular, CTA Bilaterally Gastrointestinal: Yes: Normal Bowel Sounds, Soft Breast(s): Yes: Breast Implants (Left Breast abscess with discharging sinus a) , Other Extremities: No: Calf Tenderness Edema: No Peripheral Pulses: Left Doralis Pedis: 1+, Right Dorsalis Pedis: 1+ Wound/Incision: Yes: Other (Left Breast abscess) Neurological: Yes: Alert, Oriented ...Motor Strength: WNL, LUE, LLE, RUE, RLE Labs: CBC, BMP 06/22/18 06:00 06/22/18 06:00 Microbiology 06/19/18 21:30 Gram Stain - Final Abscess Wound Culture - Final NO GROWTH AFTER 48 HOURS INCUBATION Discharge Summary Reason For Visit: ABSCESS OF BREAST,INFECTUIN OF BREAST IMPLANT, Current Active Problems Cellulitis of breast (Acute) Infection of breast implant (Acute) Left breast abscess (Acute) Hospital Course: 42 y/o young woman healthy no H/O HTN, DM S/P Silicone Breast Implant and removal of Saline Breast Implants, Abdominalplasty, and Hernia Repair all done, January 2018), Hernia Repair (2003), Who presents to the ED with left breast pain, erythema, swelling x 1 day. normal CBC Left breast exam and ultrasound shows Abscess that burst, evaluated by ID and Plastic surgery recived IV vncomycin and Zosyn , breast discharge culture -ve for bacterial growth ID recommended switch to Po Clindamycin and Augmentin for 1 wk and plastic surgery recommended implant removal once infection is controlled, patient is being DC home on PO medications. Time Spent: 38 minutes Condition: Stable - Instructions Referrals: Dario Spence MD [Staff Physician] - 1 Week Estephania Acosta [Primary Care Provider] - 2 Weeks Disposition: AGAINST MEDICAL ADVICE - Home Medications Comprehensive Discharge Medication List: Ambulatory Orders Amox-Tr/K Cl [Augmentin 875-125mg Tablet -] 1 tab PO BID@0800,1730 7 Days #14 tablet MDD two 06/22/18 Clindamycin [Cleocin -] 300 mg PO TID 7 Days #21 capsule MDD three 06/22/18 Ibuprofen [Motrin -] 400 mg PO Q8H PRN 10 Days #30 tablet MDD three 06/22/18
[2018-06-22] MEDS: VANCOMYCIN 1,250 MG in DEXTROSE 5%-WATER - 250 ML IVPB SCH (12:56)
[2018-06-22 13:42] VITALS: BP 112/60; PULSE 68; TEMP 98.4
[2018-06-22] MEDS ORDERED: CLINDAMYCIN HCL 150 MG CAPSULE (FP) PO SCH (14:00)
[2018-06-22] MEDS ORDERED: AMOX TR/POT CLAV 875MG/125MG TABLETS (FP) PO SCH (17:30)
== END 2018-06-22 15:31 | disposition home or self-care (01) | DRG 721 ==
LOC: JER 23:20 → JERBED 06-16 02:20 → J7W 06-16 04:04
PROVIDERS: ADMIT Internal Medicine; ATTEND Internal Medicine
DX: T85.79XA Infection and inflammatory reaction due to other internal prosthetic devices, implants and grafts, initial encounter (principal); N61.0 Mastitis without abscess; N61.1 Abscess of the breast and nipple; Y83.8 Other surgical procedures as the cause of abnormal reaction of the patient, or of later complication, without mention of misadventure at the time of the procedure
CPT/HCPCS: 36415; 71046-TC-FY; 76642-TC-LT; 80048; 80053; 81003; 81015; 83605; 83735; 84100; 84702; 84703; 85025; 85610; 85730; 86850; 86900; 86901; 87040; 87070; 87086; 87205; 93005; 93010; 99283-25; J1644; J7030

== ENCOUNTER 2018-08-10 10:23 | Emergency (ER) | payer OTHER ==
[2018-08-10 10:32] VITALS: BP 123/82; PULSE 77; TEMP 98; BMI 25.0
[2018-08-10 11:56] LABS: BASO % 0.7 % (0-2.0); EOS % 1.1 % (0-4.5); HEMATOCRIT 37.9 % (32.4-45.2); LYMPH % 15.5 % (8-40); MCH 26.9 pg (25.7-33.7); MCHC 34.4 g/dl (32.0-36.0); MEAN CELL VOLUME 78.1 fl (80-96); MEAN PLT VOLUME 8.5 fl (7.5-11.1); MONO % 7.7 % (3.8-10.2); PLATELET COUNT 325 K/MM3 (134-434); RBC 4.85 M/mm3 (3.60-5.2); RDW 21.8 % (11.6-15.6); WHITE BLOOD COUNT 9.1 K/mm3 (4.0-10.0)
--- NOTE | 2018-08-10 12:02 | PDOC ---
History of Present Illness - General Chief Complaint: Pain Stated Complaint: PAIN History Source: Patient Exam Limitations: No Limitations - History of Present Illness Initial Comments: 08/10/18 11:55 42 yo female pmh of 2 repaired umbilical hernias (last one repaired in January while having liposuction) and a recent admission for left breast abscess with breast implants (resolved) presents to the ED for 2 weeks of intermittent blood in the stool with bowel movements and generalized weakness. Pt states she has 2- 3 normal BM per day with on and off blood in the stool that fills the toilet without abdominal pain prior to or during defecation. Pt has not had a colonoscopy before and not followed by GI. Pt does admit to generalized weakness the blood per stool started, admits using Motrin for 2 weeks for pain relief from the recent abscess, denies hx of blood in stool, diverticular disease, excessive alcohol use, f/c/n/v, abdominal pain, CP or SOB Past History - Past Medical History Allergies/Adverse Reactions: Allergies Allergy/AdvReac Type Severity Reaction Status Date / Time No Known Allergies Allergy Verified 08/10/18 10:28 Home Medications: Ambulatory Orders Amox-Tr/K Cl [Augmentin 875-125mg Tablet -] 1 tab PO BID@0800,1730 7 Days #14 tablet MDD two 06/22/18 Clindamycin [Cleocin -] 300 mg PO TID 7 Days #21 capsule MDD three 06/22/18 Ibuprofen [Motrin -] 400 mg PO Q8H PRN 10 Days #30 tablet MDD three 06/22/18 Anemia: No Asthma: No Cancer: No Cardiac Disorders: No CVA: No COPD: No DVT: No Dementia: No Diabetes: No Dialysis: No GI Disorders: No Disorders: No HTN: No Hypercholesterolemia: No Kidney Stones: No Liver Disease: No Psychiatric Problems: No Seizures: No Thyroid Disease: No Lung CA: No - Surgical History Abdominal Surgery: Yes (HERNIA x 2, abdominoplasty, liposuction) - Reproductive History (#): 6 Para: 5 - Immunization History Immunization Up to Date: Yes - Suicide/Smoking/Psychosocial Hx Smoking Status: No Smoking History: Never smoked Have you smoked in the past 12 months: No Number of Cigarettes Smoked Daily: 0 Hx Alcohol Use: No Drug/Substance Use Hx: No Hx Substance Use Treatment: No *Physical Exam - Vital Signs Last Vital Signs Temp Pulse Resp BP Pulse Ox 98.0 F 77 18 123/82 100 08/10/18 10:28 08/10/18 10:28 08/10/18 10:28 08/10/18 10:28 08/10/18 10:28 Moderate Sedation - Procedure Monitoring Vital Signs: Procedure Monitoring Vital Signs Temperature 98.0 F 08/10/18 10:28 Pulse Rate 77 08/10/18 10:28 Respiratory Rate 18 08/10/18 10:28 Blood Pressure 123/82 08/10/18 10:28 O2 Sat by Pulse Oximetry (%) 100 08/10/18 10:28 ED Treatment Course - LABORATORY CBC & Chemistry Diagram: 08/10/18 11:11 08/10/18 11:11 *DC/Admit/Observation/Transfer Diagnosis at time of Disposition: Rectal bleed - Discharge Dispostion Disposition: HOME Condition at time of disposition: Stable Decision to Admit order: No - Referrals Referrals: Loki Jackson MD [Primary Care Provider] - Jaret Zamarripa MD [Staff Physician] - Joe Tolbert DO [Staff Physician] - - Patient Instructions Printed Discharge Instructions: DI for Rectal Bleeding Additional Instructions: please make appointment with GI doctor within the next 24-48 hours for a possible endoscopy/colonoscopy. Make appointment with your Primary Care Doctor within then next 24-48 hours Return to the ER for new or concerning symptoms including but not limited to: continued profuse bleeding, profound weakness, fatigue, confusion, high fevers. Thank you - Post Discharge Activity
--- NOTE | 2018-08-10 12:08 | PDOC ---
Attending Attestation - Resident Resident Name: Darron Veloz - ED Attending Attestation I have performed the following: I have examined & evaluated the patient, The case was reviewed & discussed with the resident, I agree w/resident's findings & plan - [facility] HPI: 08/10/18 14:04 42 y/o young woman healthy no H/O HTN, DM S/P Silicone Breast Implant and removal of Saline Breast Implants, Abdominalplasty, and Hernia Repair all done, January 2018), Hernia Repair (2003), recent breast abscess admission presenting Today with intermittent episodes of bloody stools with BM and generalized weakness. No prior colonoscopy. Uses motrin x 2 week period for her initial breast pain. Admits to poor fiber diet, with hard stools and bleeding with BM. - Physicial Exam PE: 08/10/18 14:04 NAD, well appearing, PERRL, EOMI, MMM, nl conjunctiva, anicteric; neck supple. lungs clear, RRR, abdomen soft nontender. CORTEZ x4, no focal neuro deficits. No peripheral edema. normal color for ethnicity, WWP. rectal exam by resident, no gross bleeding or external abnormalities noted. - Medical Decision Making 08/10/18 14:04 See HPI for details Vital signs reviewed, wnl. Prior notes reviewed, including admissions, discharges and consultations. laboratory results and imaging reviewed, basic labs and lytes wnl, normal CBC. no anemia. ED course: uncomplicated, no events abdomen soft NTND. nonperitoneal guaiac positive, but no gross bleeding high fiber diet, hydration and supportive care encouraged. GI followup as outpatient, referrals given. ddx provided to patient, likely hemorrhoid vs tear vs constipation vs PUD/ulcer (recent NSAID use) vs. diverticular bleed. Dispo: Pt to be discharged in stable condition. Patient and family made aware of impression and plan, return precautions discussed (including but not limited to worsening pain or symptoms), fevers, or signs of infection, chest pain, respiratory distress, inability to tolerate oral intake, dehydration, syncope, or neurologic changes). Follow up with PMD and/or specialist as recommended, follow up information provided. continue with supportive care, avoid triggers and precipitants. All questions answered to patient's satisfaction and expressed understanding and comfort with this. 08/10/18 14:06
[2018-08-10 12:22] LABS: ALBUMIN 3.2 g/dl (3.4-5.0); ALK PHOS 113 U/L (45-117); ANION GAP 7 MMOL/L (8-16); BILIRUBIN,TOTAL 0.5 mg/dL (0.2-1); BLOOD UREA NITROGEN 17 mg/dL (7-18); CALCIUM 8.7 mg/dL (8.5-10.1); CHLORIDE 105 mmol/L (98-107); CO2 27 mmol/L (21-32); CREATININE 0.7 mg/dL (0.55-1.3); GLUCOSE,RANDOM 92 mg/dL (74-106); POTASSIUM 4.3 mmol/L (3.5-5.1); SGOT/AST 24 U/L (15-37); SGPT/ALT 25 U/L (13-61); SODIUM 139 mmol/L (136-145); TOT PROT 7.7 g/dl (6.4-8.2)
[2018-08-10 12:51] LABS: ADD RBC MORPHOLOGY YES; ANISOCYTOSIS 2+
[2018-08-10 12:52] LABS: OVALOCYTE 1+; TEAR DROP CELLS 1+
[2018-08-10 12:56] LABS: URINE APPEARANCE CLEAR; URINE BILIRUBIN NEGATIVE (<2.0 mg/dL); URINE COLOR YELLOW; URINE GLUCOSE (UA) NEGATIVE (NEGATIVE); URINE KETONE NEGATIVE (NEGATIVE); URINE LEUK ESTERASE NEGATIVE (NEGATIVE); URINE NITRITE NEGATIVE (NEGATIVE); URINE PROTEIN 2+ (NEGATIVE); URINE UROBILINOGEN NEGATIVE mg/dL (0.2-1.0)
[2018-08-10 12:59] LABS: SERUM PREGNANCY TEST NEGATIVE
[2018-08-10 13:06] LABS: EPI CELLS RARE /HPF (FEW); URINE HYALINE CAST 100 /lpf; URINE MUCUS RARE
[2018-08-10] MEDS ORDERED: ONDANSETRON *ODT* 4 MG TABLET SL ONE (13:40)
[2018-08-10] MEDS ORDERED: SODIUM CHLORIDE 1,000 ML IV STA (13:41)
--- NOTE | 2018-08-10 13:58 | EKG ---
Test Reason : Blood Pressure : / mmHG Vent. Rate : 069 BPM Atrial Rate : 069 BPM P-R Int : 154 ms QRS Dur : 100 ms QT Int : 404 ms P-R-T Axes : 033 044 027 degrees QTc Int : 432 ms NORMAL SINUS RHYTHM NORMAL ECG WHEN COMPARED WITH ECG OF 16-JUN-2018 00:20, NO SIGNIFICANT CHANGE WAS FOUND Confirmed by HERMAN GONZALEZ MD ([id number]) on 08/10/2018 1:58:00 PM Referred By: Confirmed By:HERMAN GONZALEZ MD
== END 2018-08-10 14:09 | disposition home or self-care (01) ==
LOC: JER 10:23
DX: K62.5 Hemorrhage of anus and rectum (principal); Z98.890 Other specified postprocedural states; Z98.86 Personal history of breast implant removal
CPT/HCPCS: 36415; 80053; 81003; 81015; 82272; 84703; 85025; 87086; 93005; 93010; 99282-25

== ENCOUNTER 2021-03-02 09:24 | Day surgery (SDC) | payer SELFPAY ==
[2021-02-25 16:35] VITALS: BMI 25.5
[2021-03-02] MEDS ORDERED: EPINEPHrine/PF 1 MG/1 ML (1:1,000) AMPULE ONE (09:39)
[2021-03-02] MEDS ORDERED: BUPIVACAINE HCL/PF 0.25% (2.5MG/ML) 10 ML VIAL ONE (09:39)
[2021-03-02] MEDS ORDERED: BACITRACIN 15 GM TUBE TOPICAL OINTMENT ONE (09:39)
[2021-03-02] MEDS ORDERED: BUPIVACAINE LIPOSOME/PF (EXPAREL) 266 MG/20 ML VIAL ONE (09:40)
[2021-03-02] MEDS ORDERED: MIDAZOLAM HCL 2 MG/2 ML SINGLE DOSE VIAL ONE (11:21)
[2021-03-02] MEDS ORDERED: SUCCINYLCHOLINE CHLORIDE 200 MG/10 ML SYRINGE ONE (11:21)
[2021-03-02] MEDS ORDERED: PROPOFOL 20 ML ONE ×9 (11:21→14:49)
[2021-03-02] MEDS ORDERED: HEPARIN NA (PORCINE) 5,000 UNITS/ML 1ML VIAL ONE (11:29)
[2021-03-02] MEDS ORDERED: DEXAMETHASONE SOD PHOSPHATE 4 MG/1 ML VIAL ONE (11:52)
[2021-03-02] MEDS ORDERED: ONDANSETRON 4 MG/2 ML VIAL ONE (11:52)
[2021-03-02] MEDS ORDERED: HYDROmorphone HCL/PF 1 MG/ML VIAL ONE (11:52)
[2021-03-02] MEDS ORDERED: ceFAZolin SODIUM 1 GM VIAL ONE ×2 (11:53→12:20)
[2021-03-02] MEDS ORDERED: fentaNYL CITRATE 250 MCG/5 ML VIAL ONE (12:03)
[2021-03-02] MEDS ORDERED: BUPIVACAINE HCL/PF 0.25% (2.5MG/ML) 10 ML VIAL IJ ONE ×2 (12:23→13:09)
[2021-03-02] MEDS ORDERED: BUPIVACAINE LIPOSOME/PF (EXPAREL) 266 MG/20 ML VIAL NR ONE ×2 (12:23→13:09)
[2021-03-02] MEDS ORDERED: ONDANSETRON 4 MG/2 ML VIAL IVPUSH PRN (15:22)
[2021-03-02] MEDS ORDERED: oxyCODONE HCL 5 MG TABLET PO PRN (15:22)
[2021-03-02] MEDS ORDERED: LACTATED RINGERS SOLUTION 1,000 ML IV SCH (15:30)
[2021-03-02] MEDS ORDERED: DEXMEDETOMIDINE HCL 200 MCG/2 ML IVPB ONE (15:30)
[2021-03-02] MEDS ORDERED: ACETAMINOPHEN INJECTION 100 ML IVPB ONE (15:30)
[2021-03-02] MEDS ORDERED: NEOSTIGMINE METHYLSULFATE 0.5 MG/1 ML - 10 ML MDV ONE (15:36)
[2021-03-02] MEDS ORDERED: GLYCOPYRROLATE 0.2 MG/1 ML VIAL ONE (15:39)
[2021-03-02] MEDS ORDERED: ONDANSETRON 4 MG/2 ML VIAL IVPB PRN (16:39)
[2021-03-02] MEDS: LACTATED RINGERS SOLUTION 1,000 ML IV SCH ×2 (17:25→17:31)
[2021-03-02] MEDS: MORPHINE SULFATE 2 MG/ML VIAL IVPUSH PRN ×2 (18:28→23:34)
[2021-03-02] MEDS: oxyCODONE HCL 5 MG TABLET PO PRN (20:19)
[2021-03-02] MEDS: CEFAZOLIN 1 GM/D5W 1 GM/50 ML BAG IVPB SCH (21:23)
[2021-03-03] MEDS: oxyCODONE HCL 5 MG TABLET PO PRN (02:39)
[2021-03-03] MEDS: CEFAZOLIN 1 GM/D5W 1 GM/50 ML BAG IVPB SCH ×2 (05:00→08:59)
[2021-03-03] MEDS: MORPHINE SULFATE 2 MG/ML VIAL IVPUSH PRN (05:29)
[2021-03-03] MEDS ORDERED: HEPARIN NA (PORCINE) 5,000 UNITS/ML 1ML VIAL SQ SCH (08:00)
[2021-03-03 08:58] VITALS: BP 143/84; PULSE 62; TEMP 98.5
== END 2021-03-03 10:26 | disposition home or self-care (01) ==
LOC: FASU 09:24 → FM/S 16:39 → FASU 03-03 10:26
PROVIDERS: ATTEND Plastic Surgery
PROC: 0J080ZZ Alteration of Abdomen Subcutaneous Tissue and Fascia, Open Approach (ICD-10-PCS; principal; 2021-03-02 12:10)
PROC: 0J083ZZ Alteration of Abdomen Subcutaneous Tissue and Fascia, Percutaneous Approach (ICD-10-PCS; 2021-03-02 12:10)
DX: Z41.1 Encounter for cosmetic surgery (principal)
CPT/HCPCS: 84703; 88304-TC; 94760; J0131; J1644

== ENCOUNTER 2021-09-20 12:21 | Emergency (ER) | payer OTHER ==
[2021-09-20 12:30] VITALS: BP 139/91; PULSE 90; TEMP 97; BMI 25.0
[2021-09-20] MEDS ORDERED: KETOROLAC TROMETHAMINE 30 MG/1 ML VIAL IM ONE (12:45)
[2021-09-20] MEDS ORDERED: KETOROLAC TROMETHAMINE 30 MG/1 ML VIAL ONE (12:53)
== END 2021-09-20 13:10 | disposition home or self-care (01) ==
LOC: JERFT 12:21
PROC: 3E0233Z Introduction of Anti-inflammatory into Muscle, Percutaneous Approach (ICD-10-PCS; principal; 2021-09-20)
DX: M54.2 Cervicalgia (principal)
CPT/HCPCS: 99284-25

== ENCOUNTER 2022-04-22 15:51 | Emergency (ER) | payer OTHER ==
[2022-04-22 15:56] VITALS: PULSE 99; RESP 19; TEMP 98.3; BMI 23.5
[2022-04-22 16:09] VITALS: BP 146/95
[2022-04-22] MEDS ORDERED: KETOROLAC TROMETHAMINE 30 MG/1 ML VIAL IM ONE (16:14)
[2022-04-22] MEDS ORDERED: LIDOCAINE 5% TOPICAL PATCH TP ONE (16:14)
[2022-04-22] MEDS ORDERED: KETOROLAC TROMETHAMINE 30 MG/1 ML VIAL ONE (16:15)
[2022-04-22] MEDS ORDERED: LIDOCAINE 5% TOPICAL PATCH ONE (16:15)
[2022-04-22] MEDS ORDERED: LIDOCAINE PATCH REMOVAL MC SCH (22:00)
== END 2022-04-22 16:24 | disposition home or self-care (01) ==
LOC: JERFT 15:51
PROC: 3E0233Z Introduction of Anti-inflammatory into Muscle, Percutaneous Approach (ICD-10-PCS; principal; 2022-04-22)
DX: M62.838 Other muscle spasm (principal)
CPT/HCPCS: 99284-25